=== PATIENT | male | born 1970 | race Hispanic/Latino ===

== ENCOUNTER 2021-07-07 10:10 | Outpatient (CLI) | payer OTHER ==
[2021-07-07 11:11] LABS: #Monocytes 0.2 10x3/uL (0.0-1.1); #Neutrophils 1.8 10x3/uL (1.5-8.4); %Basophils 0.3 % (0.0-2.0); %Eosinophils 0.8 % (0.0-6.0); %Lymphocytes 45.7 % (18.0-47.0); %Monocytes 4.4 % (0.0-10.0); %Neutrophils 47.8 % (40.0-75.0); Hemoglobin 10.4 g/dL (13.5-17.5); Mean Corpuscular HGB CONC 30.2 g/dL (32.0-36.0); Mean Corpuscular Hemoglobin 27.2 pg (27.0-33.0); Mean Corpuscular Volume 90.1 fl (81.2-95.1); Mean Platelet Volume 8.5 fl (7.4-10.4); Platelet Count 131 10x3/uL (150-450); Red Blood Cell (RBC) Count 3.82 10x6/uL (4.32-5.72); White Blood Cell (WBC) Count 3.9 10x3/uL (3.5-10.5)
[2021-07-07 11:38] LABS: Anion Gap 12 mmol/L (10-20); BUN (Urea Nitrogen) 7 mg/dL (8.9-20.6); Calc. Creatinine Clearance 0 mL/min (70-130); Calcium 8.4 mg/dL (7.8-10.44); Carbon Dioxide 27 mmol/L (22-29); Chloride 108 mmol/L (98-107); Glucose 159 mg/dL (70-105); Potassium 3.6 mmol/L (3.5-5.1); Sodium 143 mmol/L (136-145)
[2021-07-07 18:11] LABS: SARS-CoV-2 PCR by NAA Not Detected (NotDetected)
== END 2021-07-07 10:11 | disposition home or self-care (01) ==
LOC: LABBT 10:10
PROVIDERS: ATTEND Specialist
DX: Z01.818 Encounter for other preprocedural examination (principal); K43.2 Incisional hernia without obstruction or gangrene; Z20.822 Contact with and (suspected) exposure to COVID-19
CPT/HCPCS: 80048; 85025; 93005; 93010; U0003; U0005

== ENCOUNTER 2021-07-08 11:10 | Emergency (ER) | payer OTHER ==
[2021-07-08 11:43] LABS: #Lymphocytes 1.5 thou/uL (1.20-3.40); #Monocytes 0.2 thou/uL (0.11-0.59); %Basophils 0.3 % (0.0-1.0); %Eosinophils 1.1 % (0.0-10.0); %Monocytes 5.4 % (0.0-10.0); %Neutrophils 53.3 % (42.0-75.0); Hemoglobin 11.4 g/dL (14.0-18.0); Mean Corpuscular HGB CONC 32.7 g/dL (32.0-36.0); Mean Corpuscular Hemoglobin 28.9 pg (27.0-31.0); Mean Corpuscular Volume 88.2 fL (78.0-98.0); Mean Platelet Volume 7.2 fL (7.4-10.4); Platelet Count 155 thou/uL (130-400); RBC Distribution Width 13.5 % (11.5-14.5); Red Blood Cell (RBC) Count 3.94 mill/uL (4.70-6.10); White Blood Cell (WBC) Count 3.7 thou/uL (4.8-10.8)
[2021-07-08 12:42] LABS: ALT (SGPT) 16 U/L (8-55); AST (SGOT) 20 U/L (5-34); Albumin 3.2 g/dL (3.5-5.0); Alkaline Phosphatase 128 U/L (40-110); Anion Gap 13 mmol/L (10-20); BUN (Urea Nitrogen) 9 mg/dL (8.9-20.6); Bilirubin, Total 0.2 mg/dL (0.2-1.2); Calc. Creatinine Clearance 0 mL/min (70-130); Calcium 8.7 mg/dL (7.8-10.44); Carbon Dioxide 25 mmol/L (22-29); Chloride 111 mmol/L (98-107); Globulin 3.4 g/dL (2.4-3.5); Glucose 106 mg/dL (70-105); Potassium 3.8 mmol/L (3.5-5.1); Protein, Total 6.6 g/dL (6.0-8.3); Sodium 145 mmol/L (136-145)
[2021-07-08 14:11] LABS: Troponin I 0.015 ng/mL (< 0.028)
[2021-07-08] MEDS ORDERED: Morphine 4 MG/ML VIAL ONE (14:49)
== END 2021-07-08 15:07 | disposition home or self-care (01) ==
LOC: ERS 11:10
DX: R07.89 Other chest pain (principal); E11.9 Type 2 diabetes mellitus without complications; J45.909 Unspecified asthma, uncomplicated; Z87.891 Personal history of nicotine dependence; Z79.899 Other long term (current) drug therapy
CPT/HCPCS: 36415; 71045; 80053; 84484; 85025; 93005; 96372; J2270

== ENCOUNTER 2021-07-10 06:16 | Inpatient (IN) | payer OTHER ==
[2021-07-09 12:11] VITALS: BMI 36.5
[2021-07-10] MEDS ORDERED: Acetaminophen 500 MG TAB ONE (06:47)
[2021-07-10] MEDS ORDERED: ceFAZolin 2 GM/DEX 5% 100 ML BAG ONE (06:47)
[2021-07-10] MEDS ORDERED: Gabapentin 300 MG CAP ONE (06:47)
[2021-07-10] MEDS ORDERED: Ketorolac Tromethamine 30 MG/ML VIAL ONE (06:47)
[2021-07-10] MEDS ORDERED: Bupivacaine 0.25% HCL 30 ML VIAL ONE (07:24)
[2021-07-10] MEDS ORDERED: Lidocaine 1% w/Epinephrine 1:100K 20 ML VIAL ONE (07:24)
[2021-07-10] MEDS ORDERED: Fentanyl 250 MCG/5 ML VIAL ONE (07:45)
[2021-07-10] MEDS ORDERED: Midazolam HCl 2 mg/2 ml Vial ONE (07:45)
[2021-07-10] MEDS ORDERED: Rocuronium Bromide 10 MG/ML (10ML VIAL) ONE (08:03)
[2021-07-10] MEDS ORDERED: Lidocaine 1% PF 5 ML VIAL ONE (08:03)
[2021-07-10] MEDS ORDERED: Glycopyrrolate 0.2 MG/ML 5 ML SYRINGE ONE (08:03)
[2021-07-10] MEDS ORDERED: PROPOFOL 200 MG/20 ML VIAL ONE (08:03)
[2021-07-10] MEDS ORDERED: Ondansetron PF 4 MG/2 ML Vial ONE ×2 (08:03)
[2021-07-10] MEDS ORDERED: Dexamethasone 20 MG/5 ML VIAL ONE (08:03)
[2021-07-10] MEDS ORDERED: Hydrocortisone 1% Cream 30 GM TUBE ONE (08:24)
[2021-07-10] MEDS ORDERED: Hydrocortisone Sod Succ/PF 100 mg/2 ml Vial ONE (08:25)
[2021-07-10] MEDS ORDERED: HYDROmorphone 2 MG/ML VIAL ONE (10:35)
[2021-07-10] MEDS ORDERED: Promethazine HCl 25 MG/ML VIAL IM PRN (11:46)
[2021-07-10] MEDS ORDERED: Meperidine HCl/PF 25 MG/ML VIAL SLOW IVP PRN (11:46)
[2021-07-10] MEDS ORDERED: Promethazine HCl 25 MG/ML VIAL IVPB PRN (11:46)
[2021-07-10] MEDS ORDERED: Ondansetron HCl/PF 4 MG/2 ML Vial IVP PRN (11:46)
[2021-07-10] MEDS ORDERED: Fentanyl 100 MCG/2 ML VIAL ONE ×2 (12:10→12:36)
[2021-07-10] MEDS ORDERED: Dextrose 50% Abboject 50 ML SYRINGE SLOW IVP PRN (12:21)
[2021-07-10] MEDS ORDERED: hydrALAZINE 20 MG/ML VIAL SLOW IVP PRN (12:21)
[2021-07-10] MEDS ORDERED: Ondansetron ODT 4 MG TAB PO PRN (12:21)
[2021-07-10] MEDS ORDERED: Morphine 4 MG/ML VIAL SLOW IVP PRN ×2 (12:21→12:40)
[2021-07-10] MEDS ORDERED: Ondansetron PF 4 MG/2 ML Vial IVP PRN (12:21)
[2021-07-10] MEDS ORDERED: Dextrose 5% in Water 1,000 ML IV PRN (12:21)
[2021-07-10] MEDS ORDERED: traMADol HCl 50 MG TAB PO PRN (12:26)
[2021-07-10] MEDS ORDERED: Ketorolac Tromethamine 30 MG/ML VIAL IVP PRN (12:26)
[2021-07-10] MEDS ORDERED: Acetaminophen 500 MG TAB PO PRN (12:26)
[2021-07-10] MEDS ORDERED: Ketorolac Tromethamine 30 MG/ML VIAL IVP SCH (12:30)
[2021-07-10] MEDS ORDERED: Piperacillin/Tazobactam 3.375 GM in Sodium Chloride 0.9% 100 ML IVPB SCH ×2 (12:30→13:00)
[2021-07-10] MEDS ORDERED: Acetaminophen 500 MG TAB PO SCH (12:30)
[2021-07-10] MEDS ORDERED: Piperacillin/Tazobactam 3.375 GM VIAL ONE (12:42)
[2021-07-10] MEDS ORDERED: Sodium Chloride 0.9% 100 ML ONE (12:42)
[2021-07-10] MEDS: Sodium Chloride 0.45% 1,000 ML IV SCH ×2 (14:59→23:08)
[2021-07-10] MEDS: Piperacillin/Tazobactam 3.375 GM in Sodium Chloride 0.9% 100 ML IVPB SCH (17:55)
[2021-07-10] MEDS: HumaLOG 300 UNITS/3 ML VIAL SC PRN ×2 (17:56→20:25)
[2021-07-10] MEDS ORDERED: Nystatin Powder 15 GM BOT TOP PRN (18:04)
[2021-07-10] MEDS: Enoxaparin Sodium 40 MG/0.4 ML SYRINGE SC SCH (20:25)
[2021-07-10] MEDS: Famotidine 20 MG TAB PO SCH (20:25)
[2021-07-11] MEDS: Piperacillin/Tazobactam 3.375 GM in Sodium Chloride 0.9% 100 ML IVPB SCH ×3 (02:07→17:54)
[2021-07-11] MEDS: Sodium Chloride 0.45% 1,000 ML IV SCH (04:48)
[2021-07-11 04:56] LABS: #Lymphocytes 1.1 thou/uL (1.20-3.40); #Monocytes 0.2 thou/uL (0.11-0.59); #Neutrophils 3.3 thou/uL (1.40-6.50); %Eosinophils 0.3 % (0.0-10.0); %Lymphocytes 23.2 % (21.0-51.0); %Monocytes 3.8 % (0.0-10.0); %Neutrophils 72.7 % (42.0-75.0); Hemoglobin 9.2 g/dL (14.0-18.0); Mean Corpuscular HGB CONC 32.1 g/dL (32.0-36.0); Mean Corpuscular Hemoglobin 28.5 pg (27.0-31.0); Mean Corpuscular Volume 88.8 fL (78.0-98.0); Mean Platelet Volume 6.9 fL (7.4-10.4); Platelet Count 127 thou/uL (130-400); RBC Distribution Width 13.1 % (11.5-14.5); Red Blood Cell (RBC) Count 3.22 mill/uL (4.70-6.10); White Blood Cell (WBC) Count 4.5 thou/uL (4.8-10.8)
[2021-07-11 05:24] LABS: ALT (SGPT) 13 U/L (8-55); AST (SGOT) 14 U/L (5-34); Albumin 2.8 g/dL (3.5-5.0); Alkaline Phosphatase 106 U/L (40-110); Anion Gap 11 mmol/L (10-20); BUN (Urea Nitrogen) 16 mg/dL (8.9-20.6); Bilirubin, Total 0.2 mg/dL (0.2-1.2); Calc. Creatinine Clearance 130 mL/min (70-130); Calcium 8.2 mg/dL (7.8-10.44); Carbon Dioxide 24 mmol/L (22-29); Chloride 106 mmol/L (98-107); Globulin 3.5 g/dL (2.4-3.5); Glucose 227 mg/dL (70-105); Magnesium 1.6 mg/dL (1.6-2.6); Potassium 4.3 mmol/L (3.5-5.1); Protein, Total 6.3 g/dL (6.0-8.3); Sodium 137 mmol/L (136-145)
[2021-07-11] MEDS: HumaLOG 300 UNITS/3 ML VIAL SC PRN ×3 (07:00→20:48)
[2021-07-11] MEDS: Lantus 1000 UNITS/10 ML VIAL SC SCH (08:41)
[2021-07-11] MEDS: Famotidine 20 MG TAB PO SCH ×2 (08:42→20:52)
[2021-07-11] MEDS: Folic Acid 1 MG TAB PO SCH (08:43)
[2021-07-11] MEDS: Pioglitazone HCl 45 MG TAB PO SCH (08:43)
[2021-07-11] MEDS: predniSONE 5 MG TAB PO SCH (08:43)
[2021-07-11] MEDS: HYDROcodone/Acetaminophen 5/325 mg Tablet PO PRN (08:47)
[2021-07-11] MEDS ORDERED: glyBURIDE 5 MG TAB PO SCH (09:00)
[2021-07-11] MEDS ORDERED: FLU VACC QS2021-22(6MOS UP)/PF 60 MCG/0.5 ML SYRINGE IM ONE (09:00)
[2021-07-11] MEDS: glyBURIDE 5 MG TAB PO SCH (10:04)
[2021-07-11] MEDS: Enoxaparin Sodium 40 MG/0.4 ML SYRINGE SC SCH (20:52)
[2021-07-12] MEDS: Piperacillin/Tazobactam 3.375 GM in Sodium Chloride 0.9% 100 ML IVPB SCH ×3 (02:58→17:52)
[2021-07-12] MEDS: Famotidine 20 MG TAB PO SCH ×2 (09:03→21:06)
[2021-07-12] MEDS: Folic Acid 1 MG TAB PO SCH (09:04)
[2021-07-12] MEDS: predniSONE 5 MG TAB PO SCH (09:04)
[2021-07-12] MEDS: HYDROcodone/Acetaminophen 5/325 mg Tablet PO PRN ×2 (09:08→13:29)
[2021-07-12] MEDS: glyBURIDE 5 MG TAB PO SCH (09:15)
[2021-07-12] MEDS: Pioglitazone HCl 45 MG TAB PO SCH (09:16)
[2021-07-12] MEDS: Lantus 1000 UNITS/10 ML VIAL SC SCH (11:07)
[2021-07-12] MEDS: HumaLOG 300 UNITS/3 ML VIAL SC PRN (16:49)
[2021-07-12] MEDS: Enoxaparin Sodium 40 MG/0.4 ML SYRINGE SC SCH (21:06)
[2021-07-13] MEDS: Piperacillin/Tazobactam 3.375 GM in Sodium Chloride 0.9% 100 ML IVPB SCH ×3 (02:41→18:13)
[2021-07-13] MEDS: Lantus 1000 UNITS/10 ML VIAL SC SCH (09:11)
[2021-07-13] MEDS: glyBURIDE 5 MG TAB PO SCH (09:13)
[2021-07-13] MEDS: predniSONE 5 MG TAB PO SCH (09:14)
[2021-07-13] MEDS: Famotidine 20 MG TAB PO SCH ×2 (09:14→20:17)
[2021-07-13] MEDS: Folic Acid 1 MG TAB PO SCH (09:14)
[2021-07-13] MEDS: Pioglitazone HCl 45 MG TAB PO SCH (09:15)
[2021-07-13] MEDS ORDERED: Piperacillin/Tazobactam 3.375 GM VIAL ONE (18:05)
[2021-07-13 19:20] LABS: SARS-CoV-2 NAA Rapid Test Not Detected (NotDetected)
[2021-07-13] MEDS: Enoxaparin Sodium 40 MG/0.4 ML SYRINGE SC SCH (20:17)
[2021-07-14] MEDS: Piperacillin/Tazobactam 3.375 GM in Sodium Chloride 0.9% 100 ML IVPB SCH ×3 (02:10→16:58)
[2021-07-14 06:17] LABS: #Eosinphils 0.1 thou/uL (0.0-0.7); #Lymphocytes 2.3 thou/uL (1.20-3.40); #Monocytes 0.4 thou/uL (0.11-0.59); #Neutrophils 2.5 thou/uL (1.40-6.50); %Eosinophils 2.2 % (0.0-10.0); %Lymphocytes 43.7 % (21.0-51.0); %Monocytes 7.3 % (0.0-10.0); %Neutrophils 46.9 % (42.0-75.0); Hemoglobin 10.4 g/dL (14.0-18.0); Mean Corpuscular HGB CONC 31.2 g/dL (32.0-36.0); Mean Corpuscular Hemoglobin 28.2 pg (27.0-31.0); Mean Corpuscular Volume 90.4 fL (78.0-98.0); Mean Platelet Volume 6.4 fL (7.4-10.4); Platelet Count 170 thou/uL (130-400); RBC Distribution Width 13.7 % (11.5-14.5); Red Blood Cell (RBC) Count 3.68 mill/uL (4.70-6.10); White Blood Cell (WBC) Count 5.2 thou/uL (4.8-10.8)
[2021-07-14 06:36] LABS: ALT (SGPT) 16 U/L (8-55); AST (SGOT) 17 U/L (5-34); Albumin 3.2 g/dL (3.5-5.0); Alkaline Phosphatase 133 U/L (40-110); Anion Gap 11 mmol/L (10-20); BUN (Urea Nitrogen) 16 mg/dL (8.9-20.6); Bilirubin, Total 0.3 mg/dL (0.2-1.2); Calc. Creatinine Clearance 130 mL/min (70-130); Carbon Dioxide 31 mmol/L (22-29); Chloride 114 mmol/L (98-107); Globulin 3.8 g/dL (2.4-3.5); Glucose 76 mg/dL (70-105); Potassium 3.5 mmol/L (3.5-5.1); Sodium 152 mmol/L (136-145)
[2021-07-14] MEDS ORDERED: Lactated Ringer's 1,000 ML IV SCH (08:00)
[2021-07-14] MEDS: Cholecalciferol (Vitamin D3) 400 UNITS TAB PO SCH (08:44)
[2021-07-14] MEDS: Famotidine 20 MG TAB PO SCH ×2 (08:44→20:43)
[2021-07-14] MEDS: Folic Acid 1 MG TAB PO SCH (08:44)
[2021-07-14] MEDS: Lantus 1000 UNITS/10 ML VIAL SC SCH (08:45)
[2021-07-14] MEDS: predniSONE 5 MG TAB PO SCH (08:45)
[2021-07-14] MEDS: Pioglitazone HCl 45 MG TAB PO SCH (08:45)
[2021-07-14] MEDS: ERGOCALCIFEROL 50 MCG PO SCH ×2 (09:13→09:14)
[2021-07-14] MEDS: Enoxaparin Sodium 40 MG/0.4 ML SYRINGE SC SCH (20:38)
[2021-07-14] MEDS: HumaLOG 300 UNITS/3 ML VIAL SC PRN (20:48)
[2021-07-15] MEDS: Piperacillin/Tazobactam 3.375 GM in Sodium Chloride 0.9% 100 ML IVPB SCH ×2 (02:11→15:40)
[2021-07-15] MEDS ORDERED: Sodium Chloride 0.45% 1,000 ML IV SCH (08:00)
[2021-07-15] MEDS ORDERED: Lidocaine 1% w/Epinephrine 1:100K 20 ML VIAL ONE (08:25)
[2021-07-15] MEDS ORDERED: Bupivacaine 0.25% HCL 30 ML VIAL ONE (08:25)
[2021-07-15] MEDS ORDERED: Fentanyl 250 MCG/5 ML VIAL ONE (08:58)
[2021-07-15] MEDS ORDERED: Fentanyl 100 MCG/2 ML VIAL ONE (11:28)
[2021-07-15] MEDS: Cholecalciferol (Vitamin D3) 400 UNITS TAB PO SCH (14:01)
[2021-07-15] MEDS: predniSONE 5 MG TAB PO SCH (14:02)
[2021-07-15] MEDS: Pioglitazone HCl 45 MG TAB PO SCH (14:02)
[2021-07-15] MEDS: Famotidine 20 MG TAB PO SCH (14:02)
[2021-07-15] MEDS: Folic Acid 1 MG TAB PO SCH (14:02)
[2021-07-15] MEDS: Lantus 1000 UNITS/10 ML VIAL SC SCH (14:20)
[2021-07-15 15:58] VITALS: BP 102/66; TEMP 98
== END 2021-07-15 16:16 | disposition home or self-care (01) | DRG 330 ==
LOC: SDC 06:16 → SURG A 12:31
PROVIDERS: ADMIT Specialist; ATTEND Specialist
PROC: 0DQE4ZZ Repair Large Intestine, Percutaneous Endoscopic Approach (ICD-10-PCS; principal; 2021-07-10)
PROC: 0DNW4ZZ Release Peritoneum, Percutaneous Endoscopic Approach (ICD-10-PCS; 2021-07-10)
PROC: 0WQF4ZZ Repair Abdominal Wall, Percutaneous Endoscopic Approach (ICD-10-PCS; 2021-07-10)
PROC: 8E0W4CZ Robotic Assisted Procedure of Trunk Region, Percutaneous Endoscopic Approach (ICD-10-PCS; 2021-07-10)
PROC: 0WUF4JZ Supplement Abdominal Wall with Synthetic Substitute, Percutaneous Endoscopic Approach (ICD-10-PCS; 2021-07-15)
PROC: 8E0W4CZ Robotic Assisted Procedure of Trunk Region, Percutaneous Endoscopic Approach (ICD-10-PCS; 2021-07-15)
DX: K43.2 Incisional hernia without obstruction or gangrene (principal); C96.6 Unifocal Langerhans-cell histiocytosis; Z20.822 Contact with and (suspected) exposure to COVID-19; E11.9 Type 2 diabetes mellitus without complications; E66.9 Obesity, unspecified; Z79.52 Long term (current) use of systemic steroids; Z93.3 Colostomy status; Z68.36 Body mass index [BMI] 36.0-36.9, adult; Z79.4 Long term (current) use of insulin; Z79.899 Other long term (current) drug therapy
CPT/HCPCS: 36415; 36416; 80053; 83735; 85025; 86850; 86900; 86901; C1713; J1100; J1170; J1650; J1720; J1815; J1885; J2250; J2405; J2543; J2704; J3010; J3490; J7120; J7512; S0020; U0002

== ENCOUNTER 2023-10-16 23:22 | Inpatient (IN) | payer OTHER ==
[2023-10-17 00:06] LABS: #Eosinphils 0.2 thou/uL (0.0-0.7); #Monocytes 1.1 thou/uL (0.11-0.59); #Neutrophils 8.2 thou/uL (1.40-6.50); %Basophils 0.1 % (0.0-1.0); %Eosinophils 1.2 % (0.0-10.0); %Lymphocytes 24.6 % (21.0-51.0); %Monocytes 8.9 % (0.0-10.0); %Neutrophils 64.6 % (42.0-75.0); Hematocrit 29.9 % (42.0-52.0); Hemoglobin 8.7 g/dL (14.0-18.0); Mean Corpuscular HGB CONC 29.1 g/dL (32.0-36.0); Mean Corpuscular Hemoglobin 28.1 pg (27.0-31.0); Mean Corpuscular Volume 96.5 fl (78.0-98.0); Mean Platelet Volume 8.9 fL (7.4-10.4); Platelet Count 155 10x3/uL (130-400); RBC Distribution Width 18.6 % (11.5-14.5); White Blood Cell (WBC) Count 12.7 10x3/uL (4.8-10.8)
[2023-10-17] MEDS ORDERED: Ipratropium/Albuterol 3 ML NEB ONE (00:10)
[2023-10-17 00:37] LABS: Troponin I 0.023 ng/mL (< 0.028)
[2023-10-17] MEDS ORDERED: methylPREDNISolone Sod Succ/PF 125 MG/2 ML VIAL ONE ×2 (00:45→00:51)
[2023-10-17] MEDS ORDERED: Sodium Chloride 0.9% 100 ML ONE (00:45)
[2023-10-17] MEDS ORDERED: Cefepime 1 GM VIAL ONE (00:45)
[2023-10-17 00:46] LABS: Albumin 2.5 g/dL (3.5-5.0)
[2023-10-17 00:47] LABS: Chloride 89 mmol/L (98-107); Potassium 4.2 mmol/L (3.5-5.1); Sodium 130 mmol/L (136-145)
[2023-10-17 00:48] LABS: Calcium 7.7 mg/dL (7.8-10.44)
[2023-10-17 00:49] LABS: Globulin 3.4 g/dL (2.4-3.5); Glucose 130 mg/dL (70-105); Protein, Total 5.9 g/dL (6.0-8.3)
[2023-10-17 00:50] LABS: Anion Gap 16 mmol/L (10-20); Bilirubin, Total 0.4 mg/dL (0.2-1.2); Carbon Dioxide 29 mmol/L (22-29)
[2023-10-17 00:51] LABS: Alkaline Phosphatase 237 U/L (40-110)
[2023-10-17 00:52] LABS: Calc. Creatinine Clearance 0 mL/min (70-130); Estimated GFR 107
[2023-10-17 00:53] LABS: BUN (Urea Nitrogen) 21 mg/dL (8.4-25.7)
[2023-10-17 00:54] LABS: ALT (SGPT) 23 U/L (8-55); AST (SGOT) 27 U/L (5-34)
[2023-10-17] MEDS ORDERED: Vancomycin 1 GM/200 ML (FROZEN) BAG ONE (02:30)
[2023-10-17 02:50] LABS: Actual Bicarbonate (HCO3a) 31.1 mEq/L (22-28); Analyzer IN Cardio ER; Base Excess (BEa) 3.8 mEq/L (-2.0 to +3.0); Calcium, Ionized (arterial) 1.08 mmol/L (1.12-1.30); Carboxyhemoglobin (COHb) 1.2 gm% (0.0-3.0); Hematocrit-ABG 29 % (42.0-52.0); Hemoglobin (Hb) 9.8 g/dL (14.0-18.0); Potassium - ABG Lab 3.53 mmol/L (3.70-5.30); pH, Arterial 7.313 (7.35-7.45)
[2023-10-17 02:54] LABS: CO2 Tension 62.7 mmHg (35.0-45.0)
[2023-10-17 02:55] LABS: ALV-art Gradient 221.125 mmHg (0-20); Puncture Site LRA
[2023-10-17] MEDS ORDERED: Ondansetron ODT 4 MG TAB PO PRN (03:28)
[2023-10-17] MEDS ORDERED: Acetaminophen 650 MG Suppository PR PRN (03:28)
[2023-10-17] MEDS ORDERED: Acetaminophen 325 MG TAB PO PRN (03:28)
[2023-10-17] MEDS ORDERED: Ipratropium/Albuterol 3 ML NEB NEB PRN (03:38)
[2023-10-17] MEDS ORDERED: Albuterol 2.5 MG (3 mL) NEB NEB PRN (04:04)
[2023-10-17 04:49] LABS: #Monocytes 0.3 thou/uL (0.11-0.59); #Neutrophils 5.3 thou/uL (1.40-6.50); %Eosinophils 0.2 % (0.0-10.0); %Lymphocytes 5.8 % (21.0-51.0); %Monocytes 5.6 % (0.0-10.0); %Neutrophils 88.1 % (42.0-75.0); Hematocrit 29.3 % (42.0-52.0); Hemoglobin 8.8 g/dL (14.0-18.0); Mean Corpuscular Hemoglobin 28.4 pg (27.0-31.0); Mean Corpuscular Volume 94.5 fl (78.0-98.0); Mean Platelet Volume 9.5 fL (7.4-10.4); Platelet Count 142 10x3/uL (130-400); RBC Distribution Width 18.5 % (11.5-14.5)
[2023-10-17 05:04] LABS: Lactic Acid 1.3 mmol/L (0.5-2.2)
[2023-10-17 05:27] LABS: Anion Gap 14 mmol/L (10-20); BUN (Urea Nitrogen) 17 mg/dL (8.4-25.7); Calc. Creatinine Clearance 137 mL/min (70-130); Calcium 8.1 mg/dL (7.8-10.44); Carbon Dioxide 28 mmol/L (22-29); Chloride 98 mmol/L (98-107); Estimated GFR 113; Glucose 83 mg/dL (70-105); Potassium 4.2 mmol/L (3.5-5.1); Sodium 136 mmol/L (136-145)
[2023-10-17] MEDS: Ipratropium/Albuterol 3 ML NEB NEB SCH (08:18)
[2023-10-17] MEDS: Enoxaparin 40 MG (0.4 mL) SYRINGE SC SCH (08:26)
[2023-10-17] MEDS: Cefepime 2 GM in Sodium Chloride 0.9% 100 ML IVPB SCH ×2 (08:26→17:42)
[2023-10-17] MEDS: Pantoprazole 40 MG VIAL IVP SCH (08:27)
[2023-10-17] MEDS: methylPREDNISolone Sod Succ 40 MG VIAL IVP SCH (08:27)
[2023-10-17] MEDS: FLU VACC QS2023-24(6MOS UP)/PF 60 MCG/0.5 ML SYRINGE IM ONE (08:27)
[2023-10-17 08:45] LABS: Actual Bicarbonate (HCO3a) 30.1 mEq/L (22-28); Base Excess (BEa) 4.8 mEq/L (-2.0 to +3.0); CO2 Tension 49.2 mmHg (35.0-45.0); Calcium, Ionized (arterial) 1.07 mmol/L (1.12-1.30); Carboxyhemoglobin (COHb) 1.8 gm% (0.0-3.0); Hematocrit-ABG 25 % (42.0-52.0); Hemoglobin (Hb) 8.5 g/dL (14.0-18.0); O2 Tension (PaO2), arterial 114.9 mmHg (80.0-100.0); Potassium - ABG Lab 4.53 mmol/L (3.70-5.30); pH, Arterial 7.405 (7.35-7.45)
[2023-10-17] MEDS: NOREPINEPHRINE 8 MG/250 ML-D5W 250 ML IVPB SCH (08:45)
[2023-10-17 08:47] LABS: Puncture Site RRA
[2023-10-17] MEDS: NOREPINEPHRINE 8 MG/250 ML-D5W 250 ML ONE (09:05)
[2023-10-17] MEDS: Sodium Chloride 0.9% 1,000 ML IV SCH ×2 (09:06→16:01)
[2023-10-18 04:52] LABS: #Monocytes 0.5 thou/uL (0.11-0.59); #Neutrophils 5.8 thou/uL (1.40-6.50); %Monocytes 6.9 % (0.0-10.0); %Neutrophils 82.1 % (42.0-75.0); Hematocrit 21.7 % (42.0-52.0); Hemoglobin 6.4 g/dL (14.0-18.0); Mean Corpuscular HGB CONC 29.5 g/dL (32.0-36.0); Mean Corpuscular Hemoglobin 27.9 pg (27.0-31.0); Mean Corpuscular Volume 94.8 fl (78.0-98.0); Mean Platelet Volume 8.7 fL (7.4-10.4); Platelet Count 125 10x3/uL (130-400); RBC Distribution Width 18.8 % (11.5-14.5); Red Blood Cell (RBC) Count 2.29 mill/uL (4.70-6.10); White Blood Cell (WBC) Count 7.1 10x3/uL (4.8-10.8)
[2023-10-18 05:19] LABS: ALT (SGPT) 16 U/L (8-55); AST (SGOT) 18 U/L (5-34); Albumin 2.1 g/dL (3.5-5.0); Alkaline Phosphatase 149 U/L (40-110); Anion Gap 15 mmol/L (10-20); BUN (Urea Nitrogen) 18 mg/dL (8.4-25.7); Bilirubin, Total Less than 0.2 mg/dL (0.2-1.2); Calc. Creatinine Clearance 141 mL/min (70-130); Calcium 7.1 mg/dL (7.8-10.44); Carbon Dioxide 23 mmol/L (22-29); Chloride 109 mmol/L (98-107); Estimated GFR 113; Globulin 3.4 g/dL (2.4-3.5); Glucose 152 mg/dL (70-105); Potassium 3.7 mmol/L (3.5-5.1); Protein, Total 5.5 g/dL (6.0-8.3); Sodium 143 mmol/L (136-145)
[2023-10-18 06:53] LABS: Hematocrit 23.4 % (42.0-52.0); Hemoglobin 6.8 g/dL (14.0-18.0); Mean Corpuscular HGB CONC 29.1 g/dL (32.0-36.0); Mean Corpuscular Hemoglobin 27.9 pg (27.0-31.0); Mean Corpuscular Volume 95.9 fl (78.0-98.0); Mean Platelet Volume 9.7 fL (7.4-10.4); Platelet Count 119 10x3/uL (130-400); RBC Distribution Width 19.4 % (11.5-14.5); Red Blood Cell (RBC) Count 2.44 mill/uL (4.70-6.10); White Blood Cell (WBC) Count 8.1 10x3/uL (4.8-10.8)
[2023-10-18 15:40] LABS: Hematocrit 23.2 % (42.0-52.0); Hemoglobin 6.7 g/dL (14.0-18.0)
[2023-10-18 16:45] LABS: Iron 48 ug/dL (65-175); Iron Binding Capacity, Total 241 mcg/dL (261-462)
[2023-10-18 20:21] LABS: Hemoglobin 8.8 g/dL (14.0-18.0)
[2023-10-19 04:57] LABS: #Monocytes 0.6 thou/uL (0.11-0.59); #Neutrophils 7.2 thou/uL (1.40-6.50); %Lymphocytes 8.3 % (21.0-51.0); %Monocytes 6.5 % (0.0-10.0); %Neutrophils 84.3 % (42.0-75.0); Hematocrit 30.1 % (42.0-52.0); Hemoglobin 8.8 g/dL (14.0-18.0); Mean Corpuscular HGB CONC 29.2 g/dL (32.0-36.0); Mean Corpuscular Hemoglobin 27.7 pg (27.0-31.0); Mean Corpuscular Volume 94.7 fl (78.0-98.0); Mean Platelet Volume 9.8 fL (7.4-10.4); Platelet Count 134 10x3/uL (130-400); RBC Distribution Width 19.1 % (11.5-14.5); Red Blood Cell (RBC) Count 3.18 mill/uL (4.70-6.10); White Blood Cell (WBC) Count 8.5 10x3/uL (4.8-10.8)
[2023-10-19 05:26] LABS: ALT (SGPT) 16 U/L (8-55); AST (SGOT) 20 U/L (5-34); Albumin 2.6 g/dL (3.5-5.0); Alkaline Phosphatase 176 U/L (40-110); Anion Gap 12 mmol/L (10-20); BUN (Urea Nitrogen) 23 mg/dL (8.4-25.7); Bilirubin, Total 0.2 mg/dL (0.2-1.2); Calc. Creatinine Clearance 135 mL/min (70-130); Carbon Dioxide 27 mmol/L (22-29); Chloride 107 mmol/L (98-107); Estimated GFR 111; Glucose 169 mg/dL (70-105); Potassium 3.6 mmol/L (3.5-5.1); Protein, Total 6.6 g/dL (6.0-8.3); Sodium 142 mmol/L (136-145)
[2023-10-19] MEDS ORDERED: Dextrose 5% in Water 1,000 ML IV PRN (15:25)
[2023-10-19] MEDS: glyBURIDE 5 MG TAB PO SCH (17:14)
[2023-10-19] MEDS: Insulin Glargine 30 UNITS/0.3 ML VIAL SC SCH (20:09)
[2023-10-19] MEDS: HYDROcodone/Acetaminophen 5/325 mg Tablet PO PRN (20:21)
[2023-10-19] MEDS: Lidocaine 1% (PF) 30 ML VIAL ONE (22:20)
[2023-10-19] MEDS: Lorazepam 2 MG/ML VIAL SLOW IVP SCH (22:20)
[2023-10-20 06:14] LABS: #Eosinphils 0.1 thou/uL (0.0-0.7); #Monocytes 0.7 thou/uL (0.11-0.59); #Neutrophils 4.4 thou/uL (1.40-6.50); %Basophils 0.1 % (0.0-1.0); %Eosinophils 0.9 % (0.0-10.0); %Lymphocytes 28.5 % (21.0-51.0); %Monocytes 9.6 % (0.0-10.0); %Neutrophils 58.8 % (42.0-75.0); Hematocrit 35.8 % (42.0-52.0); Hemoglobin 10.3 g/dL (14.0-18.0); Mean Corpuscular HGB CONC 28.8 g/dL (32.0-36.0); Mean Corpuscular Hemoglobin 28.5 pg (27.0-31.0); Mean Corpuscular Volume 99.2 fl (78.0-98.0); Mean Platelet Volume 9.2 fL (7.4-10.4); Platelet Count 135 10x3/uL (130-400); RBC Distribution Width 19.9 % (11.5-14.5); Red Blood Cell (RBC) Count 3.61 mill/uL (4.70-6.10); White Blood Cell (WBC) Count 7.6 10x3/uL (4.8-10.8)
[2023-10-20 06:31] LABS: ALT (SGPT) 18 U/L (8-55); AST (SGOT) 20 U/L (5-34); Albumin 2.7 g/dL (3.5-5.0); Alkaline Phosphatase 185 U/L (40-110); Anion Gap 12 mmol/L (10-20); BUN (Urea Nitrogen) 20 mg/dL (8.4-25.7); Bilirubin, Total 0.2 mg/dL (0.2-1.2); Calc. Creatinine Clearance 115 mL/min (70-130); Calcium 8.6 mg/dL (7.8-10.44); Carbon Dioxide 29 mmol/L (22-29); Chloride 111 mmol/L (98-107); Estimated GFR 106; Globulin 4.2 g/dL (2.4-3.5); Glucose 148 mg/dL (70-105); Potassium 3.1 mmol/L (3.5-5.1); Protein, Total 6.9 g/dL (6.0-8.3); Sodium 149 mmol/L (136-145)
[2023-10-20 06:55] LABS: Anisocytosis SLIGHT = 6-15 cells HPF (0-5); CellaVision Operator ID lab.abc; Macrocytosis SLIGHT = 6-15 cells HPF (0-5); Platelet Adequacy Comment Platelets Normal; Polychromasia SLIGHT = 2-3 cells HPF (0-2); Smudge Cells 33.7 %
[2023-10-20] MEDS: predniSONE 5 MG TAB PO SCH (09:14)
[2023-10-20] MEDS: Folic Acid 1 MG TAB PO SCH (09:15)
[2023-10-20] MEDS: Furosemide 40 MG (4 mL) VIAL SLOW IVP SCH (14:04)
[2023-10-20] MEDS: HumaLOG 300 UNITS/3 ML VIAL SC PRN (17:00)
[2023-10-20] MEDS: Lorazepam 2 MG/ML VIAL SLOW IVP PRN (17:01)
[2023-10-21 07:59] LABS: #Eosinphils 0.1 thou/uL (0.0-0.7); #Monocytes 0.5 thou/uL (0.11-0.59); #Neutrophils 3.4 thou/uL (1.40-6.50); %Basophils 0.2 % (0.0-1.0); %Eosinophils 1.3 % (0.0-10.0); %Monocytes 9.7 % (0.0-10.0); %Neutrophils 63.8 % (42.0-75.0); Hematocrit 36.9 % (42.0-52.0); Hemoglobin 10.5 g/dL (14.0-18.0); Mean Corpuscular HGB CONC 28.5 g/dL (32.0-36.0); Mean Corpuscular Hemoglobin 28.5 pg (27.0-31.0); Mean Platelet Volume 8.5 fL (7.4-10.4); Platelet Count 112 10x3/uL (130-400); RBC Distribution Width 19.9 % (11.5-14.5); Red Blood Cell (RBC) Count 3.69 mill/uL (4.70-6.10); White Blood Cell (WBC) Count 5.4 10x3/uL (4.8-10.8)
[2023-10-21 08:32] LABS: Anisocytosis SLIGHT = 6-15 cells HPF (0-5); CellaVision Operator ID LAB.KW3; Platelet Adequacy Comment Platelets Decreased; Polychromasia MODERATE = 3-4 cells HPF (0-2)
[2023-10-21 08:40] LABS: BUN (Urea Nitrogen) 24 mg/dL (8.4-25.7); Calc. Creatinine Clearance 121 mL/min (70-130); Calcium 8.8 mg/dL (7.8-10.44); Estimated GFR 108; Glucose 91 mg/dL (70-105); Magnesium 2.4 mg/dL (1.6-2.6)
[2023-10-21 08:51] LABS: Anion Gap 12 mmol/L (10-20); Carbon Dioxide 36 mmol/L (22-29); Chloride 112 mmol/L (98-107); Potassium 3.3 mmol/L (3.5-5.1)
[2023-10-21 08:58] LABS: Critical Call Chemistry NUR.MV AT 0850; Sodium 157 mmol/L (136-145)
[2023-10-21] MEDS: Ipratropium/Albuterol 3 ML NEB NEB SCH (13:15)
[2023-10-21] MEDS: Haloperidol Lactate 5 MG/ML VIAL IM SCH (13:36)
[2023-10-21] MEDS ORDERED: Dexmedetomidine In 0.9 % NaCl 100 ML IVPB SCH (13:45)
[2023-10-21 14:04] LABS: Actual Bicarbonate (HCO3a) 35.4 mEq/L (22-28); Base Excess (BEa) 8.3 mEq/L (-2.0 to +3.0); Calcium, Ionized (arterial) 1.16 mmol/L (1.12-1.30); Carboxyhemoglobin (COHb) 0.9 gm% (0.0-3.0); Hematocrit-ABG 34 % (42.0-52.0); Hemoglobin (Hb) 11.7 g/dL (14.0-18.0); Potassium - ABG Lab 3.42 mmol/L (3.70-5.30); pH, Arterial 7.374 (7.35-7.45)
[2023-10-21 14:17] LABS: O2 Tension (PaO2), arterial 39.3 mmHg (80.0-100.0)
[2023-10-21 14:18] LABS: Puncture Site LBA
[2023-10-21 14:40] VITALS: BMI 32.8
[2023-10-21] MEDS: Haloperidol Lactate 5 MG/ML VIAL ONE (14:55)
[2023-10-21] MEDS: Dextrose 5% in Water 500 ML IV SCH (15:13)
[2023-10-21 15:22] LABS: Sodium 158 mmol/L (136-145)
[2023-10-21] MEDS: Enoxaparin 40 MG (0.4 mL) SYRINGE SC SCH (21:27)
[2023-10-21] MEDS: Dextrose 50% Abboject 50 ML SYRINGE SLOW IVP PRN (23:03)
[2023-10-22 03:57] LABS: #Monocytes 0.3 thou/uL (0.11-0.59); #Neutrophils 2.9 thou/uL (1.40-6.50); %Basophils 0.2 % (0.0-1.0); %Eosinophils 0.5 % (0.0-10.0); %Monocytes 6.9 % (0.0-10.0); %Neutrophils 69.5 % (42.0-75.0); Hematocrit 32.5 % (42.0-52.0); Hemoglobin 9.2 g/dL (14.0-18.0); Mean Corpuscular HGB CONC 28.3 g/dL (32.0-36.0); Mean Corpuscular Hemoglobin 28.1 pg (27.0-31.0); Mean Corpuscular Volume 99.4 fl (78.0-98.0); Mean Platelet Volume 8.8 fL (7.4-10.4); RBC Distribution Width 19.5 % (11.5-14.5); Red Blood Cell (RBC) Count 3.27 mill/uL (4.70-6.10); White Blood Cell (WBC) Count 4.2 10x3/uL (4.8-10.8)
[2023-10-22 03:58] LABS: Platelet Count 79 10x3/uL (130-400)
[2023-10-22 04:23] LABS: BUN (Urea Nitrogen) 34 mg/dL (8.4-25.7); Calc. Creatinine Clearance 129 mL/min (70-130); Calcium 8.5 mg/dL (7.8-10.44); Estimated GFR 110; Glucose 58 mg/dL (70-105); Magnesium 2.2 mg/dL (1.6-2.6)
[2023-10-22 04:32] LABS: Anion Gap 14 mmol/L (10-20); Carbon Dioxide 34 mmol/L (22-29); Chloride 110 mmol/L (98-107); Potassium 3.6 mmol/L (3.5-5.1)
[2023-10-22 04:34] LABS: Critical Call Chemistry NUR.RP @0433; Sodium 154 mmol/L (136-145)
[2023-10-22 10:51] LABS: Actual Bicarbonate (HCO3a) 35.6 mEq/L (22-28); Base Excess (BEa) 4.6 mEq/L (-2.0 to +3.0); Calcium, Ionized (arterial) 1.16 mmol/L (1.12-1.30); Potassium - ABG Lab 3.16 mmol/L (3.70-5.30); pH, Arterial 7.228 (7.35-7.45)
[2023-10-22 10:52] LABS: CO2 Tension 87.4 mmHg (35.0-45.0); Puncture Site RBA
[2023-10-22 11:47] LABS: Actual Bicarbonate (HCO3a) 31.3 mEq/L (22-28); Base Excess (BEa) 4.6 mEq/L (-2.0 to +3.0); CO2 Tension 54.2 mmHg (35.0-45.0); Calcium, Ionized (arterial) 1.14 mmol/L (1.12-1.30); O2 Tension (PaO2), arterial 62.3 mmHg (80.0-100.0); Potassium - ABG Lab 3.35 mmol/L (3.70-5.30); pH, Arterial 7.379 (7.35-7.45)
[2023-10-22 11:49] LABS: Puncture Site RBA
[2023-10-22] MEDS: HumaLOG 300 UNITS/3 ML VIAL SC PRN (12:14)
[2023-10-22 12:35] LABS: Anion Gap 10 mmol/L (10-20); BUN (Urea Nitrogen) 37 mg/dL (8.4-25.7); Calc. Creatinine Clearance 113 mL/min (70-130); Calcium 8.1 mg/dL (7.8-10.44); Carbon Dioxide 36 mmol/L (22-29); Chloride 106 mmol/L (98-107); Estimated GFR 108; Glucose 177 mg/dL (70-105); Potassium 3.6 mmol/L (3.5-5.1); Sodium 148 mmol/L (136-145)
[2023-10-22] MEDS: Albumin 25% 25 GM (100 mL) BOT IVPB SCH (14:23)
[2023-10-22] MEDS: Insulin Glargine 30 UNITS/0.3 ML VIAL SC SCH (20:44)
[2023-10-23] MEDS ORDERED: Insulin Glargine 30 UNITS/0.3 ML VIAL SC SCH (00:36)
[2023-10-23 04:32] LABS: #Monocytes 0.4 thou/uL (0.11-0.59); #Neutrophils 3.7 thou/uL (1.40-6.50); %Eosinophils 0.7 % (0.0-10.0); %Lymphocytes 30.5 % (21.0-51.0); %Monocytes 5.8 % (0.0-10.0); %Neutrophils 61.5 % (42.0-75.0); Hematocrit 27.4 % (42.0-52.0); Hemoglobin 8.1 g/dL (14.0-18.0); Mean Corpuscular HGB CONC 29.6 g/dL (32.0-36.0); Mean Corpuscular Hemoglobin 28.1 pg (27.0-31.0); Mean Corpuscular Volume 95.1 fl (78.0-98.0); Mean Platelet Volume 9.9 fL (7.4-10.4); RBC Distribution Width 18.7 % (11.5-14.5); Red Blood Cell (RBC) Count 2.88 mill/uL (4.70-6.10)
[2023-10-23 04:34] LABS: Platelet Count 82 10x3/uL (130-400)
[2023-10-23 05:08] LABS: Anion Gap 11 mmol/L (10-20); BUN (Urea Nitrogen) 39 mg/dL (8.4-25.7); Calc. Creatinine Clearance 136 mL/min (70-130); Calcium 8.1 mg/dL (7.8-10.44); Carbon Dioxide 33 mmol/L (22-29); Chloride 105 mmol/L (98-107); Estimated GFR 114; Potassium 3.1 mmol/L (3.5-5.1); Sodium 146 mmol/L (136-145)
[2023-10-23 05:11] LABS: Glucose 43 mg/dL (70-105)
[2023-10-23 05:24] LABS: Phosphorus Less than 1.0 mg/dL (2.3-4.7)
[2023-10-23] MEDS: Glucagon 1 MG/ML KIT IM PRN (05:56)
[2023-10-23] MEDS: Potassium Phosphate 30 MMOL in Sodium Chloride 0.9% 250 ML 250 ML IVPB SCH (05:57)
[2023-10-23] MEDS: Dextrose 10% in Water 1,000 ML IV SCH (06:27)
[2023-10-23] MEDS: Potassium Bicarbonate/Cit Ac 20 MEQ TAB PER TUBE SCH (09:59)
[2023-10-24 05:11] LABS: #Monocytes 0.3 thou/uL (0.11-0.59); %Basophils 0.2 % (0.0-1.0); %Eosinophils 0.7 % (0.0-10.0); %Lymphocytes 37.8 % (21.0-51.0); %Monocytes 5.7 % (0.0-10.0); %Neutrophils 52.5 % (42.0-75.0); Hematocrit 28.1 % (42.0-52.0); Hemoglobin 8.4 g/dL (14.0-18.0); Mean Corpuscular HGB CONC 29.9 g/dL (32.0-36.0); Mean Corpuscular Hemoglobin 27.7 pg (27.0-31.0); Mean Corpuscular Volume 92.7 fl (78.0-98.0); Mean Platelet Volume 9.5 fL (7.4-10.4); RBC Distribution Width 19.3 % (11.5-14.5); Red Blood Cell (RBC) Count 3.03 mill/uL (4.70-6.10); White Blood Cell (WBC) Count 5.8 10x3/uL (4.8-10.8)
[2023-10-24 05:17] LABS: Platelet Count 85 10x3/uL (130-400)
[2023-10-24 05:54] LABS: Phosphorus 1.9 mg/dL (2.3-4.7)
[2023-10-24 06:01] LABS: Anion Gap 10 mmol/L (10-20); BUN (Urea Nitrogen) 29 mg/dL (8.4-25.7); Calc. Creatinine Clearance 141 mL/min (70-130); Calcium 7.6 mg/dL (7.8-10.44); Carbon Dioxide 33 mmol/L (22-29); Chloride 97 mmol/L (98-107); Estimated GFR 113; Glucose 79 mg/dL (70-105); Magnesium 2.1 mg/dL (1.6-2.6); Sodium 136 mmol/L (136-145)
[2023-10-24] MEDS: Potassium Phosphate 30 MMOL in Sodium Chloride 0.9% 250 ML 250 ML IVPB SCH (07:59)
[2023-10-24 13:41] LABS: Phosphorus 3.6 mg/dL (2.3-4.7)
[2023-10-24] MEDS: Ondansetron PF 4 MG/2 ML Vial IVP PRN (20:43)
[2023-10-25 05:10] LABS: #Eosinphils 0.1 thou/uL (0.0-0.7); #Monocytes 0.4 thou/uL (0.11-0.59); #Neutrophils 3.3 thou/uL (1.40-6.50); %Basophils 0.3 % (0.0-1.0); %Eosinophils 0.9 % (0.0-10.0); %Lymphocytes 31.3 % (21.0-51.0); %Monocytes 7.4 % (0.0-10.0); %Neutrophils 55.5 % (42.0-75.0); Hematocrit 29.9 % (42.0-52.0); Hemoglobin 9.2 g/dL (14.0-18.0); Mean Corpuscular HGB CONC 30.8 g/dL (32.0-36.0); Mean Corpuscular Volume 90.9 fl (78.0-98.0); Mean Platelet Volume 9.9 fL (7.4-10.4); Platelet Count 94 10x3/uL (130-400); RBC Distribution Width 18.4 % (11.5-14.5); Red Blood Cell (RBC) Count 3.29 mill/uL (4.70-6.10); White Blood Cell (WBC) Count 5.9 10x3/uL (4.8-10.8)
[2023-10-25 05:38] LABS: Anion Gap 8 mmol/L (10-20); BUN (Urea Nitrogen) 23 mg/dL (8.4-25.7); Calc. Creatinine Clearance 158 mL/min (70-130); Calcium 7.7 mg/dL (7.8-10.44); Carbon Dioxide 32 mmol/L (22-29); Chloride 89 mmol/L (98-107); Estimated GFR 117; Glucose 87 mg/dL (70-105); Magnesium 1.9 mg/dL (1.6-2.6); Phosphorus 2.7 mg/dL (2.3-4.7); Potassium 3.4 mmol/L (3.5-5.1); Sodium 126 mmol/L (136-145)
[2023-10-25] MEDS: Potassium Phosphate 30 MMOL in Sodium Chloride 0.9% 250 ML 250 ML IVPB SCH (07:59)
[2023-10-25] MEDS: Potassium Bicarbonate/Cit Ac 20 MEQ TAB PER TUBE SCH (08:04)
[2023-10-25 09:57] LABS: Anion Gap 11 mmol/L (10-20); BUN (Urea Nitrogen) 21 mg/dL (8.4-25.7); Calc. Creatinine Clearance 169 mL/min (70-130); Calcium 7.7 mg/dL (7.8-10.44); Carbon Dioxide 30 mmol/L (22-29); Chloride 89 mmol/L (98-107); Estimated GFR 119; Glucose 72 mg/dL (70-105); Potassium 3.9 mmol/L (3.5-5.1); Sodium 126 mmol/L (136-145)
[2023-10-25] MEDS: Magnesium 2 GM/50 ML(in water) 2 GM in Premix 1 BAG IVPB SCH (14:43)
[2023-10-25 15:52] LABS: Bacteria/HPF None Seen HPF (None Seen); Bilirubin Negative (Negative); Blood, Urine Negative (Negative); Clarity Clear (Clear); Glucose, Urine (Dipstick) Normal (Negative); Ketone, Urine Negative (Negative); Leukocyte Negative Leu/uL (Negative); Nitrite Negative (Negative); Protein, Urine (Dipstick) 20 mg/dL (Neg-Trace); RBC/HPF 0-3 HPF (0-3); Specific Gravity, Urine 1.015 (1.002-1.036); Squamous Epithelial 0-3 HPF (0-3); Urobilinogen Normal mg/dL (Less than 2); WBC/HPF 0-3 HPF (0-3)
[2023-10-25 16:41] LABS: Creatinine, Urine Less than 20.00 mg/dL (63-166); Protein, Urine Random Quant 25 mg/dL (1-14)
[2023-10-25 16:58] LABS: Anion Gap 11 mmol/L (10-20); BUN (Urea Nitrogen) 21 mg/dL (8.4-25.7); Calc. Creatinine Clearance 163 mL/min (70-130); Calcium 7.8 mg/dL (7.8-10.44); Carbon Dioxide 31 mmol/L (22-29); Chloride 87 mmol/L (98-107); Estimated GFR 118; Glucose 141 mg/dL (70-105); Potassium 4.9 mmol/L (3.5-5.1); Sodium 124 mmol/L (136-145)
[2023-10-26 05:09] LABS: #Eosinphils 0.1 thou/uL (0.0-0.7); #Monocytes 0.5 thou/uL (0.11-0.59); %Basophils 0.2 % (0.0-1.0); %Eosinophils 1.3 % (0.0-10.0); %Lymphocytes 23.5 % (21.0-51.0); %Monocytes 7.6 % (0.0-10.0); %Neutrophils 63.7 % (42.0-75.0); Hematocrit 29.9 % (42.0-52.0); Hemoglobin 9.2 g/dL (14.0-18.0); Mean Corpuscular HGB CONC 30.8 g/dL (32.0-36.0); Mean Corpuscular Volume 91.2 fl (78.0-98.0); Mean Platelet Volume 9.3 fL (7.4-10.4); Platelet Count 99 10x3/uL (130-400); RBC Distribution Width 18.1 % (11.5-14.5); Red Blood Cell (RBC) Count 3.28 mill/uL (4.70-6.10); White Blood Cell (WBC) Count 6.2 10x3/uL (4.8-10.8)
[2023-10-26 05:33] LABS: Anion Gap 11 mmol/L (10-20); BUN (Urea Nitrogen) 20 mg/dL (8.4-25.7); Calc. Creatinine Clearance 163 mL/min (70-130); Calcium 7.7 mg/dL (7.8-10.44); Carbon Dioxide 34 mmol/L (22-29); Chloride 87 mmol/L (98-107); Estimated GFR 118; Glucose 73 mg/dL (70-105); Magnesium 2.3 mg/dL (1.6-2.6); Phosphorus 2.4 mg/dL (2.3-4.7); Potassium 3.9 mmol/L (3.5-5.1); Sodium 128 mmol/L (136-145)
[2023-10-26] MEDS: Albumin 25% 25 GM (100 mL) BOT IVPB SCH (08:57)
[2023-10-26] MEDS: PHOS-NAK 1 PKT PACK PO SCH (08:57)
[2023-10-26] MEDS: Cholecalciferol 10 MCG/ML (Vitamin D3) 50 ML BOT PO SCH (08:58)
[2023-10-27 06:14] LABS: Anion Gap 12 mmol/L (10-20); BUN (Urea Nitrogen) 14 mg/dL (8.4-25.7); Calc. Creatinine Clearance 145 mL/min (70-130); Calcium 8.5 mg/dL (7.8-10.44); Carbon Dioxide 33 mmol/L (22-29); Chloride 98 mmol/L (98-107); Estimated GFR 114; Glucose 81 mg/dL (70-105); Potassium 3.7 mmol/L (3.5-5.1); Sodium 139 mmol/L (136-145)
[2023-10-27 17:28] LABS: Albumin 3.4 g/dL (3.5-5.0); Anion Gap 16 mmol/L (10-20); BUN (Urea Nitrogen) 15 mg/dL (8.4-25.7); BUN/Creatinine Ratio 21.74; Calc. Creatinine Clearance 129 mL/min (70-130); Calcium 8.9 mg/dL (7.8-10.44); Carbon Dioxide 30 mmol/L (22-29); Chloride 101 mmol/L (98-107); Estimated GFR 111; Glucose 141 mg/dL (70-105); Potassium 4.1 mmol/L (3.5-5.1); Sodium 143 mmol/L (136-145)
[2023-10-28 04:56] LABS: #Eosinphils 0.1 thou/uL (0.0-0.7); #Monocytes 0.8 thou/uL (0.11-0.59); #Neutrophils 4.7 thou/uL (1.40-6.50); %Basophils 0.3 % (0.0-1.0); %Eosinophils 0.9 % (0.0-10.0); %Monocytes 11.3 % (0.0-10.0); %Neutrophils 66.4 % (42.0-75.0); Hematocrit 34.2 % (42.0-52.0); Hemoglobin 10.2 g/dL (14.0-18.0); Mean Corpuscular HGB CONC 29.8 g/dL (32.0-36.0); Mean Corpuscular Hemoglobin 27.6 pg (27.0-31.0); Mean Corpuscular Volume 92.7 fl (78.0-98.0); Mean Platelet Volume 9.7 fL (7.4-10.4); RBC Distribution Width 19.7 % (11.5-14.5); Red Blood Cell (RBC) Count 3.69 mill/uL (4.70-6.10)
[2023-10-28 05:29] LABS: Platelet Count 119 10x3/uL (130-400)
[2023-10-28 05:33] LABS: Anion Gap 13 mmol/L (10-20); BUN (Urea Nitrogen) 16 mg/dL (8.4-25.7); Calc. Creatinine Clearance 133 mL/min (70-130); Calcium 8.9 mg/dL (7.8-10.44); Carbon Dioxide 33 mmol/L (22-29); Chloride 105 mmol/L (98-107); Estimated GFR 112; Glucose 80 mg/dL (70-105); Potassium 3.6 mmol/L (3.5-5.1); Sodium 147 mmol/L (136-145)
[2023-10-28] MEDS: Pantoprazole 40 MG VIAL IVP SCH (08:50)
[2023-10-29 06:55] LABS: #Eosinphils 0.2 thou/uL (0.0-0.7); #Monocytes 0.7 thou/uL (0.11-0.59); #Neutrophils 6.3 thou/uL (1.40-6.50); %Basophils 0.2 % (0.0-1.0); %Eosinophils 1.7 % (0.0-10.0); %Lymphocytes 18.6 % (21.0-51.0); %Monocytes 7.7 % (0.0-10.0); %Neutrophils 71.2 % (42.0-75.0); Hematocrit 35.5 % (42.0-52.0); Hemoglobin 10.3 g/dL (14.0-18.0); Mean Corpuscular Hemoglobin 28.1 pg (27.0-31.0); Mean Platelet Volume 10.5 fL (7.4-10.4); Platelet Count 180 10x3/uL (130-400); Red Blood Cell (RBC) Count 3.66 mill/uL (4.70-6.10); White Blood Cell (WBC) Count 8.8 10x3/uL (4.8-10.8)
[2023-10-29 07:14] LABS: Anion Gap 15 mmol/L (10-20); BUN (Urea Nitrogen) 21 mg/dL (8.4-25.7); Calc. Creatinine Clearance 119 mL/min (70-130); Calcium 9.5 mg/dL (7.8-10.44); Carbon Dioxide 30 mmol/L (22-29); Chloride 111 mmol/L (98-107); Estimated GFR 109; Glucose 93 mg/dL (70-105); Potassium 4.1 mmol/L (3.5-5.1)
[2023-10-29 07:24] LABS: Critical Call Chemistry NUR.BME@0730; Sodium 152 mmol/L (136-145)
[2023-10-30 06:41] LABS: Anion Gap 15 mmol/L (10-20); BUN (Urea Nitrogen) 26 mg/dL (8.4-25.7); Calc. Creatinine Clearance 110 mL/min (70-130); Calcium 9.6 mg/dL (7.8-10.44); Carbon Dioxide 32 mmol/L (22-29); Chloride 111 mmol/L (98-107); Estimated GFR 106; Glucose 90 mg/dL (70-105); Potassium 3.5 mmol/L (3.5-5.1)
[2023-10-30 06:47] LABS: Critical Call Chemistry MANOR.JRR@0646; Sodium 154 mmol/L (136-145)
[2023-10-30] MEDS: Dextrose 5% in Water 1,000 ML IV SCH ×2 (10:20→12:03)
[2023-10-31 06:12] LABS: Anion Gap 18 mmol/L (10-20); BUN (Urea Nitrogen) 27 mg/dL (8.4-25.7); Calc. Creatinine Clearance 121 mL/min (70-130); Calcium 8.4 mg/dL (7.8-10.44); Carbon Dioxide 21 mmol/L (22-29); Chloride 106 mmol/L (98-107); Estimated GFR 109; Glucose 94 mg/dL (70-105); Potassium 4.5 mmol/L (3.5-5.1); Sodium 140 mmol/L (136-145)
[2023-10-31] MEDS: Dextrose 5% in Water 1,000 ML IV SCH (09:22)
[2023-10-31 18:51] VITALS: BP 101/60; TEMP 97.7
[2023-11-01] MEDS ORDERED: Cholecalciferol 10 MCG/ML (Vitamin D3) 50 ML BOT PO SCH (09:00)
== END 2023-10-31 20:20 | disposition home or self-care (01) | DRG 314 ==
LOC: ERS 23:22 → CCU 10-17 02:30 → T4-A 10-19 15:22 → CCU 10-21 13:56 → IMCU/EMU 10-22 07:24 → CCU 10-22 11:14 → T4-A 10-27 17:20
PROVIDERS: ADMIT Student in an Organized Health Care Education/Training Program; ATTEND Internal Medicine
PROC: 5A1945Z Respiratory Ventilation, 24-96 Consecutive Hours (ICD-10-PCS; 2023-10-17)
PROC: 0B21XFZ Change Tracheostomy Device in Trachea, External Approach (ICD-10-PCS; 2023-10-17)
PROC: 30233N1 Transfusion of Nonautologous Red Blood Cells into Peripheral Vein, Percutaneous Approach (ICD-10-PCS; 2023-10-18)
PROC: 05PYX3Z Removal of Infusion Device from Upper Vein, External Approach (ICD-10-PCS; principal; 2023-10-20)
PROC: 5A0935A Assistance with Respiratory Ventilation, Less than 24 Consecutive Hours, High Flow/Velocity Cannula (ICD-10-PCS; 2023-10-21)
PROC: 5A1945Z Respiratory Ventilation, 24-96 Consecutive Hours (ICD-10-PCS; 2023-10-22)
DX: T80.211A Bloodstream infection due to central venous catheter, initial encounter (principal); A41.52 Sepsis due to Pseudomonas; J96.21 Acute and chronic respiratory failure with hypoxia; J96.22 Acute and chronic respiratory failure with hypercapnia; G93.41 Metabolic encephalopathy; R53.2 Functional quadriplegia; R65.21 Severe sepsis with septic shock; E87.20 Acidosis, unspecified; E87.1 Hypo-osmolality and hyponatremia; C96.6 Unifocal Langerhans-cell histiocytosis; E66.2 Morbid (severe) obesity with alveolar hypoventilation; E87.0 Hyperosmolality and hypernatremia; E23.2 Diabetes insipidus; J84.10 Pulmonary fibrosis, unspecified; J45.909 Unspecified asthma, uncomplicated; E78.5 Hyperlipidemia, unspecified; I10 Essential (primary) hypertension; D64.9 Anemia, unspecified; Y84.8 Other medical procedures as the cause of abnormal reaction of the patient, or of later complication, without mention of misadventure at the time of the procedure; E87.6 Hypokalemia; E83.39 Other disorders of phosphorus metabolism; E11.649 Type 2 diabetes mellitus with hypoglycemia without coma; Z93.3 Colostomy status; Z79.4 Long term (current) use of insulin; Z79.899 Other long term (current) drug therapy; Z87.891 Personal history of nicotine dependence
CPT/HCPCS: 31502; 36415; 36416; 36430; 36600; 71045; 80048; 80053; 81001; 82040; 82306; 82570; 82728; 82805; 83540; 83550; 83605; 83735; 83880; 83930; 84100; 84145; 84156; 84484; 85025; 86140; 86850; 86900; 86901; 87040; 87077; 87149; 87186; 93005; 94002; 94003; 94640; 96365; 96367; 96375; 97139; C9113; J0692; J1611; J1630; J1650; J1815; J1940; J2001; J2060; J2405; J2597; J2920; J2930; J3370-JW; J3475; J3490; J7050; J7070; J7512; J7620; J7999; P9016; P9047

== ENCOUNTER 2023-12-16 19:28 | Inpatient (IN) | payer OTHER, MEDICAID ==
[~2023-12-16 19:28] MED LIST: Iopamidol-370 76% 500 ML MDV (1 ML CHARGE) ONE
[2023-12-16] MEDS ORDERED: fentaNYL 50 mcg/mL 1 mL Vial ONE (19:36)
[2023-12-16] MEDS ORDERED: dilTIAZem 25 MG/5 ML VIAL ONE (19:51)
[2023-12-16 20:26] LABS: Actual Bicarbonate (HCO3a) 19.6 mEq/L (22-28); Analyzer IN Cardio ER; Base Excess (BEa) -9.1 mEq/L (-2.0 to +3.0); CO2 Tension 57.3 mmHg (35.0-45.0); Calcium, Ionized (arterial) 0.97 mmol/L (1.12-1.30); Carboxyhemoglobin (COHb) 0.9 gm% (0.0-3.0); Hematocrit-ABG 29 % (42.0-52.0); Hemoglobin (Hb) 9.8 g/dL (14.0-18.0); O2 Tension (PaO2), arterial 60.2 mmHg (80.0-100.0); Potassium - ABG Lab 3.39 mmol/L (3.70-5.30)
[2023-12-16 20:29] LABS: Puncture Site RRA; pH, Arterial 7.153 (7.35-7.45)
[2023-12-16 20:40] LABS: Hematocrit 29.9 % (42.0-52.0); Hemoglobin 8.8 g/dL (14.0-18.0); Mean Corpuscular HGB CONC 29.4 g/dL (32.0-36.0); Mean Corpuscular Hemoglobin 30.1 pg (27.0-31.0); Mean Corpuscular Volume 102.4 fL (78.0-98.0); Mean Platelet Volume 11.7 fL (7.4-10.4); Platelet Count 63 10x3/uL (130-400); RBC Distribution Width 18.3 % (11.5-14.5); Red Blood Cell (RBC) Count 2.92 mill/uL (4.70-6.10)
[2023-12-16] MEDS ORDERED: Sodium Chloride 0.9% 1,000 ML IV SCH (20:45)
[2023-12-16] MEDS ORDERED: Ondansetron ODT 4 MG TAB PO PRN (20:46)
[2023-12-16] MEDS ORDERED: NOREPINEPHRINE 8 MG/250 ML-D5W 250 ML IVPB PRN (20:46)
[2023-12-16] MEDS ORDERED: Acetaminophen 650 MG Suppository PR PRN (20:46)
[2023-12-16] MEDS ORDERED: Dextrose 5% in Water 1,000 ML IV PRN (20:49)
[2023-12-16] MEDS ORDERED: Glucagon 1 MG/ML KIT IM PRN (20:49)
[2023-12-16 20:54] LABS: Bacteria/HPF 4+ HPF (None Seen); Bilirubin Negative (Negative); Blood, Urine Negative (Negative); CAUTI Indications for Culture Alt mental st,lethar; Clarity Extra Turbid (Clear); Glucose, Urine (Dipstick) >=1000 mg/dL (Negative); Ketone, Urine Negative (Negative); Leukocyte 500 Leu/uL (Negative); Nitrite Negative (Negative); Protein, Urine (Dipstick) 70 mg/dL (Neg-Trace); Renal Epithelial 0-3 HPF (None Seen); Specific Gravity, Urine 1.011 (1.002-1.036); Squamous Epithelial 0-3 HPF (0-3); Urobilinogen Normal mg/dL (Less than 2); WBC/HPF Greater than 50 HPF (0-3); Yeast-Budding Rare HPF (None Seen)
[2023-12-16] MEDS ORDERED: Vancomycin 1 GM/200 ML (FROZEN) BAG ONE (20:54)
[2023-12-16] MEDS ORDERED: Cefepime 2 GM VIAL ONE (20:54)
[2023-12-16] MEDS ORDERED: NOREPINEPHRINE 8 MG/250 ML-D5W 250 ML ONE (20:54)
[2023-12-16 20:57] LABS: Anion Gap 31 mmol/L (10-20); Globulin 3.8 g/dL (2.4-3.5)
[2023-12-16 20:58] LABS: Urine Culture Reflex Yes Yes
[2023-12-16 20:59] LABS: Troponin I 0.026 ng/mL (< 0.028)
[2023-12-16] MEDS ORDERED: Propofol 1,000 MG/100 ML VIAL IV PRN (21:00)
[2023-12-16] MEDS ORDERED: Fentanyl CADD 100 ML IV SCH (21:00)
[2023-12-16] MEDS ORDERED: Propofol BOLUS 1,000 MG/100 ML VIAL IV PRN (21:00)
[2023-12-16] MEDS ORDERED: Fentanyl BOLUS 250 ML IVPB PRN (21:00)
[2023-12-16] MEDS ORDERED: Ventilator Sedation Protocol FS SCH (21:00)
[2023-12-16] MEDS ORDERED: NOREPINEPHRINE 8 MG/250 ML-D5W 250 ML IVPB SCH (21:00)
[2023-12-16] MEDS ORDERED: DISCONTINUE PREVIOUS NARCOTIC PAIN MEDICATIONS AND BENZODIAZEPINES FS SCH (21:00)
[2023-12-16 21:01] LABS: ALT (SGPT) 18 U/L (8-55); AST (SGOT) 35 U/L (5-34); Albumin 1.6 g/dL (3.5-5.0); Alkaline Phosphatase 310 U/L (40-110); BUN (Urea Nitrogen) 37 mg/dL (8.4-25.7); Bilirubin, Total 0.7 mg/dL (0.2-1.2); Calc. Creatinine Clearance 0 mL/min (70-130); Calcium 7.3 mg/dL (7.8-10.44); Carbon Dioxide 17 mmol/L (22-29); Chloride 98 mmol/L (98-107); Estimated GFR 99; Glucose 127 mg/dL (70-105); Lipase 36 U/L (8-78); Potassium 3.3 mmol/L (3.5-5.1); Protein, Total 5.4 g/dL (6.0-8.3); Sodium 143 mmol/L (136-145)
[2023-12-16] MEDS ORDERED: Ipratropium/Albuterol 3 ML NEB NEB PRN ×2 (21:15→22:03)
[2023-12-16] MEDS ORDERED: Sodium Bicarb 50 mEq/50 ML VIAL ONE (21:31)
[2023-12-16 21:33] LABS: #Basophils Less than 0.03 10x3/uL (0.0-0.2); #Eosinphils Less than 0.03 10x3/uL (0.0-0.7); %Basophils 0.1 % (0.0-1.0); %Lymphocytes 21.4 % (21.0-51.0); %Monocytes 4.9 % (0.0-10.0); %Neutrophils 61.4 % (42.0-75.0); Band 14 % (5-11); Blast 0 % (0-0); Eosinophils 0 % (0-10); Hypochromia SLIGHT = 6-15 cells (100X) (0-5/hpf); Lymphocytes 27 % (21-51); Macrocytosis SLIGHT = 6-15 cells (100X) (0-5/hpf); Metamyelocyte 0 % (0-0); Monocytes 9 % (0-10); Myelocyte 0 % (0-0); Neutrophil 50 % (42-75); Plasma Cells 0 % (0-0); Platelet Adequacy Comment Appears Decreased; Promyelocytes 0 % (0-0); Reactive Lymphocytes 0 % (0-10); Total Cell Count 100
[2023-12-16] MEDS ORDERED: Electrolyte Replacement Protocol FS PRN (22:15)
[2023-12-16] MEDS: Lactated Ringer's 1,000 ML IV SCH (23:03)
[2023-12-16] MEDS: Digoxin 0.5 MG/2 ML AMP SLOW IVP SCH (23:04)
[2023-12-16 23:12] LABS: Actual Bicarbonate (HCO3a) 23.4 mEq/L (22-28); Base Excess (BEa) -4.1 mEq/L (-2.0 to +3.0); CO2 Tension 55.2 mmHg (35.0-45.0); Carboxyhemoglobin (COHb) 0.5 gm% (0.0-3.0); Hematocrit-ABG 28 % (42.0-52.0); Hemoglobin (Hb) 9.5 g/dL (14.0-18.0); Potassium - ABG Lab 3.38 mmol/L (3.70-5.30); pH, Arterial 7.245 (7.35-7.45)
[2023-12-16 23:13] LABS: O2 Tension (PaO2), arterial 59.2 mmHg (80.0-100.0)
[2023-12-16 23:14] LABS: Puncture Site RBA
[2023-12-16] MEDS: Ipratropium/Albuterol 3 ML NEB NEB SCH (23:19)
[2023-12-16] MEDS: Digoxin 0.5 MG/2 ML AMP ONE (23:40)
[2023-12-17] MEDS: Sodium Bicarbonate 75 MEQ in Sodium Chloride 0.45% 1,000 ML IV SCH (00:01)
[2023-12-17] MEDS: Sodium Bicarb 50 mEq/50 ML VIAL IVP SCH (00:16)
[2023-12-17] MEDS: Electrolyte Replacement Protocol 1 EACH FS ONE (00:17)
[2023-12-17] MEDS: Hydrocortisone Sod Succ/PF 100 mg/2 ml Vial IVP SCH (00:17)
[2023-12-17] MEDS: Potassium Chloride 20 MEQ in Premix 1 BAG IVPB SCH (00:21)
[2023-12-17] MEDS: Vancomycin (BATCH) 1.75 GM in Premix 1 BAG IVPB SCH (00:55)
[2023-12-17] MEDS: NOREPINEPHRINE 8 MG/250 ML-D5W 250 ML IVPB PRN (00:55)
[2023-12-17 00:56] LABS: Actual Bicarbonate (HCO3a) 25.6 mEq/L (22-28); Base Excess (BEa) -1.7 mEq/L (-2.0 to +3.0); CO2 Tension 56.8 mmHg (35.0-45.0); Carboxyhemoglobin (COHb) 0.8 gm% (0.0-3.0); Hematocrit-ABG 28 % (42.0-52.0); Hemoglobin (Hb) 9.4 g/dL (14.0-18.0); O2 Tension (PaO2), arterial 74.8 mmHg (80.0-100.0); Potassium - ABG Lab 3.89 mmol/L (3.70-5.30); pH, Arterial 7.271 (7.35-7.45)
[2023-12-17 00:57] LABS: Puncture Site RRA
[2023-12-17] MEDS: EPINEPHrine 4 MG in Dextrose 5% in Water 250 ML IVP SCH (01:25)
[2023-12-17] MEDS: Vasopressin 20 UNITS in Sodium Chloride 0.9% 50 ML IV SCH (02:02)
[2023-12-17] MEDS: Amiodarone 450 MG in Dextrose 5% in Water 250 ML IVPB SCH (02:17)
[2023-12-17] MEDS: Sodium Chloride 0.9% 1,000 ML IV SCH (02:43)
[2023-12-17 03:50] LABS: Hematocrit 27.1 % (42.0-52.0); Hemoglobin 8.2 g/dL (14.0-18.0); Mean Corpuscular HGB CONC 30.3 g/dL (32.0-36.0); Mean Corpuscular Hemoglobin 28.9 pg (27.0-31.0); Mean Corpuscular Volume 95.4 fL (78.0-98.0); Mean Platelet Volume 10.4 fL (7.4-10.4); Platelet Count 48 10x3/uL (130-400); RBC Distribution Width 18.3 % (11.5-14.5); Red Blood Cell (RBC) Count 2.84 mill/uL (4.70-6.10)
[2023-12-17 04:18] LABS: Anion Gap 23 mmol/L (10-20)
[2023-12-17 04:21] LABS: INR-International Normal Ratio 1.3; Prothrombin Time 16.1 sec (12.0-14.7)
[2023-12-17 04:22] LABS: BUN (Urea Nitrogen) 33 mg/dL (8.4-25.7); Calc. Creatinine Clearance 115 mL/min (70-130); Calcium 7.5 mg/dL (7.8-10.44); Carbon Dioxide 27 mmol/L (22-29); Chloride 98 mmol/L (98-107); Estimated GFR 109; Glucose 144 mg/dL (70-105); Magnesium 1.8 mg/dL (1.6-2.6); PTT 45.1 sec (22.9-36.1); Potassium 3.8 mmol/L (3.5-5.1); Sodium 144 mmol/L (136-145)
[2023-12-17 04:23] LABS: Digoxin 0.83 ng/mL (0.8-2.0)
[2023-12-17 04:24] LABS: Lactic Acid 6.8 mmol/L (0.5-2.2)
[2023-12-17 04:36] LABS: Band 33 % (5-11); Eosinophils 4 % (0-10); Hypochromia SLIGHT = 6-15 cells HPF (0-5); Large Platelets 0.9 % (0-5); Lymphocytes 16 % (21-51); Monocytes 5 % (0-10); Neutrophil 36 % (42-75); Nucleated RBC (Manual Ct) 1 % (0); Platelet Adequacy Comment Platelets Decreased; Reactive Lymphocytes 6 % (0-10)
[2023-12-17] MEDS: Lactated Ringer's 1,000 ML IV SCH (05:13)
[2023-12-17] MEDS: metroNIDAZOLE 500 MG in Premix 1 BAG IVPB SCH (05:13)
[2023-12-17] MEDS: Magnesium 2 GM/50 ML(in water) 2 GM in Premix 1 BAG IVPB SCH (05:13)
[2023-12-17] MEDS: Acetaminophen 325 MG TAB PO PRN (07:12)
[2023-12-17] MEDS: Cefepime 2 GM in Sodium Chloride 0.9% 100 ML IVPB SCH (07:40)
[2023-12-17] MEDS: Enoxaparin 40 MG (0.4 mL) SYRINGE SC SCH (07:40)
[2023-12-17] MEDS: Pantoprazole 40 MG VIAL IVP SCH (07:41)
[2023-12-17] MEDS ORDERED: Vancomycin 1.5 GM in Sodium Chloride 0.9% 250 ML 300 ML IVPB SCH (09:00)
[2023-12-17 09:22] LABS: Magnesium 2.2 mg/dL (1.6-2.6)
[2023-12-17] MEDS: Vancomycin HCl 500 MG in Sodium Chloride 0.9% 100 ML IVPB SCH (13:39)
[2023-12-18] MEDS: Morphine 2 MG/ML VIAL SLOW IVP PRN (01:44)
[2023-12-18 05:19] LABS: Hematocrit 19.5 % (42.0-52.0); Hemoglobin 6.3 g/dL (14.0-18.0); Mean Corpuscular HGB CONC 32.3 g/dL (32.0-36.0); Mean Corpuscular Hemoglobin 28.5 pg (27.0-31.0); Mean Corpuscular Volume 88.2 fL (78.0-98.0); Platelet Count 22 10x3/uL (130-400); RBC Distribution Width 18.2 % (11.5-14.5); Red Blood Cell (RBC) Count 2.21 mill/uL (4.70-6.10)
[2023-12-18 05:26] LABS: Anion Gap 17 mmol/L (10-20)
[2023-12-18 05:28] LABS: Vancomycin, Random 22.9 ug/mL (See Comment)
[2023-12-18 05:33] LABS: BUN (Urea Nitrogen) 23 mg/dL (8.4-25.7); Calc. Creatinine Clearance 136 mL/min (70-130); Calcium 7.2 mg/dL (7.8-10.44); Carbon Dioxide 28 mmol/L (22-29); Chloride 103 mmol/L (98-107); Estimated GFR 114; Glucose 95 mg/dL (70-105); Potassium 2.8 mmol/L (3.5-5.1); Sodium 145 mmol/L (136-145)
[2023-12-18] MEDS ORDERED: Potassium Bicarbonate/Cit Ac 20 MEQ TAB PER TUBE PRN (05:42)
[2023-12-18 05:49] LABS: #Basophils Less than 0.03 10x3/uL (0.0-0.2); #Eosinphils Less than 0.03 10x3/uL (0.0-0.7); %Lymphocytes 19.9 % (21.0-51.0); %Monocytes 4.5 % (0.0-10.0); %Neutrophils 75.3 % (42.0-75.0); Hematocrit 18.9 % (42.0-52.0); Hemoglobin 6.2 g/dL (14.0-18.0); Mean Corpuscular HGB CONC 32.8 g/dL (32.0-36.0); Mean Corpuscular Hemoglobin 28.8 pg (27.0-31.0); Mean Corpuscular Volume 87.9 fL (78.0-98.0); Mean Platelet Volume 8.3 fL (7.4-10.4); Platelet Count 22 10x3/uL (130-400); RBC Distribution Width 17.9 % (11.5-14.5); Red Blood Cell (RBC) Count 2.15 mill/uL (4.70-6.10)
[2023-12-18 05:57] LABS: INR-International Normal Ratio 1.4; Prothrombin Time 16.9 sec (12.0-14.7)
[2023-12-18 05:58] LABS: Fibrinogen 644 mg/dL (253-463); PTT 52.6 sec (22.9-36.1)
[2023-12-18 06:07] LABS: D-Dimer Test 5.81 mcg/mL (0.27-0.43)
[2023-12-18 06:11] LABS: Platelet Count 23 10x3/uL (130-400)
[2023-12-18 06:19] LABS: Anisocytosis MODERATE=16-30 cells HPF (0-5); Band 39 % (5-11); Dohle Bodies SLIGHT; Hypochromia SLIGHT = 6-15 cells HPF (0-5); Large Platelets 0.9 % (0-5); Lymphocytes 17 % (21-51); Macrocytosis MODERATE=16-30 cells HPF (0-5); Monocytes 8 % (0-10); Neutrophil 36 % (42-75); Ovalocytes SLIGHT = 2-5 cells HPF (0-1); Platelet Adequacy Comment Significant Decrease; Polychromasia MODERATE = 3-4 cells HPF (0-2); Smudge Cells 31.9 %; Target Cells SLIGHT = 2-5 cells HPF (0-1)
[2023-12-18] MEDS: Potassium Chloride 20 MEQ in Premix 1 BAG IVPB SCH (06:27)
[2023-12-18] MEDS: tiZANidine HCl 4 MG TAB PER TUBE PRN (09:55)
[2023-12-18 09:59] LABS: Lactic Acid 1.2 mmol/L (0.5-2.2)
[2023-12-18 12:02] LABS: Vancomycin, Random 14.7 ug/mL (See Comment)
[2023-12-18] MEDS ORDERED: NOREPINEPHRINE 8 MG/250 ML-D5W 250 ML IVPB SCH (12:15)
[2023-12-18 12:37] LABS: Hematocrit 21.2 % (42.0-52.0); Hemoglobin 6.8 g/dL (14.0-18.0)
[2023-12-18] MEDS: Lactated Ringer's 500 ML IV SCH (13:20)
[2023-12-18] MEDS: Vancomycin HCl 750 MG in Sodium Chloride 0.9% 250 ML 250 ML IVPB SCH (13:38)
[2023-12-18] MEDS: Gabapentin 100 MG CAP PER TUBE PRN (13:41)
[2023-12-18] MEDS: Meropenem 1 GM in Sodium Chloride 0.9% 100 ML IVPB SCH ×2 (14:50→22:59)
[2023-12-18] MEDS: traMADol HCl 50 MG TAB PER TUBE PRN (15:33)
[2023-12-19 00:54] LABS: #Basophils Less than 0.03 10x3/uL (0.0-0.2); #Eosinphils Less than 0.03 10x3/uL (0.0-0.7); %Basophils 0.2 % (0.0-1.0); %Lymphocytes 6.4 % (21.0-51.0); %Monocytes 5.6 % (0.0-10.0); %Neutrophils 87.2 % (42.0-75.0); Hematocrit 31.7 % (42.0-52.0); Hemoglobin 10.3 g/dL (14.0-18.0); Mean Corpuscular HGB CONC 32.5 g/dL (32.0-36.0); Mean Corpuscular Hemoglobin 28.7 pg (27.0-31.0); Mean Corpuscular Volume 88.3 fL (78.0-98.0); Mean Platelet Volume 9.6 fL (7.4-10.4); Platelet Count 49 10x3/uL (130-400); RBC Distribution Width 19.9 % (11.5-14.5); Red Blood Cell (RBC) Count 3.59 mill/uL (4.70-6.10)
[2023-12-19 01:12] LABS: Anion Gap 19 mmol/L (10-20); Globulin 4.2 g/dL (2.4-3.5)
[2023-12-19 01:16] LABS: ALT (SGPT) 19 U/L (8-55); AST (SGOT) 39 U/L (5-34); Albumin 1.5 g/dL (3.5-5.0); Alkaline Phosphatase 189 U/L (40-110); BUN (Urea Nitrogen) 24 mg/dL (8.4-25.7); Bilirubin, Total 0.5 mg/dL (0.2-1.2); Calc. Creatinine Clearance 117 mL/min (70-130); Carbon Dioxide 25 mmol/L (22-29); Chloride 107 mmol/L (98-107); Estimated GFR 110; Glucose 160 mg/dL (70-105); Potassium 3.3 mmol/L (3.5-5.1); Protein, Total 5.7 g/dL (6.0-8.3); Sodium 148 mmol/L (136-145)
[2023-12-19] MEDS: Lorazepam 2 MG/ML VIAL SLOW IVP PRN (02:42)
[2023-12-19] MEDS: Potassium Chloride 20 MEQ in Premix 1 BAG IVPB SCH (03:00)
[2023-12-19 04:36] LABS: Hematocrit 30.2 % (42.0-52.0); Hemoglobin 9.8 g/dL (14.0-18.0); Mean Corpuscular HGB CONC 32.5 g/dL (32.0-36.0); Mean Corpuscular Hemoglobin 28.5 pg (27.0-31.0); Mean Corpuscular Volume 87.8 fL (78.0-98.0); Mean Platelet Volume 9.8 fL (7.4-10.4); Platelet Count 45 10x3/uL (130-400); RBC Distribution Width 19.8 % (11.5-14.5); Red Blood Cell (RBC) Count 3.44 mill/uL (4.70-6.10)
[2023-12-19 04:46] LABS: Anion Gap 18 mmol/L (10-20)
[2023-12-19 04:48] LABS: BUN (Urea Nitrogen) 24 mg/dL (8.4-25.7); Calc. Creatinine Clearance 122 mL/min (70-130); Calcium 7.9 mg/dL (7.8-10.44); Carbon Dioxide 25 mmol/L (22-29); Chloride 108 mmol/L (98-107); Estimated GFR 111; Glucose 147 mg/dL (70-105); Potassium 3.1 mmol/L (3.5-5.1); Sodium 148 mmol/L (136-145); Vancomycin, Random 31.3 ug/mL (See Comment)
[2023-12-19 05:30] LABS: Band 28 % (5-11); Blast 0 % (0-0); Eosinophils 0 % (0-10); Hypochromia SLIGHT = 6-15 cells (100X) (0-5/hpf); Lymphocytes 4 % (21-51); Metamyelocyte 1 % (0-0); Monocytes 7 % (0-10); Myelocyte 0 % (0-0); Neutrophil 60 % (42-75); Plasma Cells 0 % (0-0); Platelet Adequacy Comment Appears Decreased; Promyelocytes 0 % (0-0); Reactive Lymphocytes 0 % (0-10); Total Cell Count 100
[2023-12-19] MEDS: HumaLOG 300 UNITS/3 ML VIAL SC PRN (06:21)
[2023-12-19] MEDS: HYDROcodone/Acetaminophen 5/325 mg Tablet PER TUBE PRN (11:23)
[2023-12-19] MEDS: Vancomycin HCl 750 MG in Sodium Chloride 0.9% 250 ML 250 ML IVPB SCH (12:24)
[2023-12-19] MEDS: Ondansetron PF 4 MG/2 ML Vial IVP PRN (14:44)
[2023-12-19] MEDS: Hydrocortisone Sod Succ/PF 100 mg/2 ml Vial IVP SCH (20:40)
[2023-12-20] MEDS: fentaNYL 50 mcg/mL 1 mL Vial SLOW IVP SCH (01:13)
[2023-12-20 04:51] LABS: Hematocrit 32.6 % (42.0-52.0); Hemoglobin 10.3 g/dL (14.0-18.0); Mean Corpuscular HGB CONC 31.6 g/dL (32.0-36.0); Mean Corpuscular Hemoglobin 28.5 pg (27.0-31.0); Mean Corpuscular Volume 90.3 fL (78.0-98.0); Mean Platelet Volume 9.6 fL (7.4-10.4); Platelet Count 35 10x3/uL (130-400); RBC Distribution Width 20.5 % (11.5-14.5); Red Blood Cell (RBC) Count 3.61 mill/uL (4.70-6.10)
[2023-12-20 05:04] LABS: Anion Gap 13 mmol/L (10-20)
[2023-12-20 05:12] LABS: BUN (Urea Nitrogen) 24 mg/dL (8.4-25.7); Calc. Creatinine Clearance 141 mL/min (70-130); Calcium 7.8 mg/dL (7.8-10.44); Carbon Dioxide 29 mmol/L (22-29); Chloride 115 mmol/L (98-107); Estimated GFR 112; Glucose 206 mg/dL (70-105); Potassium 3.1 mmol/L (3.5-5.1); Sodium 154 mmol/L (136-145)
[2023-12-20 05:40] LABS: Anisocytosis MODERATE=16-30 cells HPF (0-5); Band 16 % (5-11); Burr Cells SLIGHT = 2-5 cells HPF (0-1); Macrocytosis SLIGHT = 6-15 cells HPF (0-5); Monocytes 3 % (0-10); Neutrophil 81 % (42-75); Ovalocytes SLIGHT = 2-5 cells HPF (0-1); Platelet Adequacy Comment Significant Decrease; Poikilocytosis SLIGHT = 6-15 cells HPF (0-5); Polychromasia MODERATE = 3-4 cells HPF (0-2); Smudge Cells 8.9 %; Target Cells SLIGHT = 2-5 cells HPF (0-1)
[2023-12-20] MEDS: Potassium Chloride 20 MEQ in Premix 1 BAG IVPB SCH (06:11)
[2023-12-20] MEDS: Desmopressin Acetate 4 mcg/ml AMPUL IVP SCH (08:23)
[2023-12-20] MEDS: Nystatin Powder 15 GM BOT TOP PRN (09:30)
[2023-12-21 04:36] LABS: #Basophils Less than 0.03 10x3/uL (0.0-0.2); #Eosinphils Less than 0.03 10x3/uL (0.0-0.7); %Basophils 0.2 % (0.0-1.0); %Monocytes 3.9 % (0.0-10.0); Hemoglobin 9.7 g/dL (14.0-18.0); Mean Corpuscular HGB CONC 32.3 g/dL (32.0-36.0); Mean Corpuscular Hemoglobin 28.6 pg (27.0-31.0); Mean Corpuscular Volume 88.5 fL (78.0-98.0); Mean Platelet Volume 10.2 fL (7.4-10.4); Platelet Count 34 10x3/uL (130-400); RBC Distribution Width 20.2 % (11.5-14.5); Red Blood Cell (RBC) Count 3.39 mill/uL (4.70-6.10)
[2023-12-21 04:54] LABS: Vancomycin, Random 18.1 ug/mL (See Comment)
[2023-12-21 05:00] LABS: Anion Gap 14 mmol/L (10-20); BUN (Urea Nitrogen) 33 mg/dL (8.4-25.7); Calc. Creatinine Clearance 138 mL/min (70-130); Calcium 7.7 mg/dL (7.8-10.44); Carbon Dioxide 30 mmol/L (22-29); Chloride 113 mmol/L (98-107); Estimated GFR 110; Glucose 205 mg/dL (70-105); Potassium 3.5 mmol/L (3.5-5.1); Sodium 153 mmol/L (136-145)
[2023-12-21 07:22] LABS: Actual Bicarbonate (HCO3a) 30.1 mEq/L (22-28); Base Excess (BEa) 4.5 mEq/L (-2.0 to +3.0); CO2 Tension 50.1 mmHg (35.0-45.0); Calcium, Ionized (arterial) 1.14 mmol/L (1.12-1.30); Carboxyhemoglobin (COHb) 0.4 gm% (0.0-3.0); Hematocrit-ABG 29 % (42.0-52.0); Hemoglobin (Hb) 9.9 g/dL (14.0-18.0); O2 Tension (PaO2), arterial 113.1 mmHg (80.0-100.0); Potassium - ABG Lab 3.53 mmol/L (3.70-5.30); pH, Arterial 7.396 (7.35-7.45)
[2023-12-21 07:23] LABS: ALV-art Gradient 109.475 mmHg (0-20); Puncture Site RRA
[2023-12-21] MEDS: Dextrose 5% in Water 1,000 ML IV SCH (09:12)
[2023-12-21] MEDS: Potassium Chloride 20 MEQ in Premix 1 BAG IVPB SCH (14:05)
[2023-12-22 06:24] LABS: #Basophils Less than 0.03 10x3/uL (0.0-0.2); #Eosinphils Less than 0.03 10x3/uL (0.0-0.7); %Lymphocytes 12.2 % (21.0-51.0); %Monocytes 4.2 % (0.0-10.0); %Neutrophils 81.9 % (42.0-75.0); Hematocrit 28.4 % (42.0-52.0); Hemoglobin 8.7 g/dL (14.0-18.0); Mean Corpuscular HGB CONC 30.6 g/dL (32.0-36.0); Mean Corpuscular Hemoglobin 28.9 pg (27.0-31.0); Mean Corpuscular Volume 94.4 fL (78.0-98.0); Platelet Count 31 10x3/uL (130-400); RBC Distribution Width 19.6 % (11.5-14.5); Red Blood Cell (RBC) Count 3.01 mill/uL (4.70-6.10)
[2023-12-22 06:30] LABS: Anion Gap 10 mmol/L (10-20); BUN (Urea Nitrogen) 37 mg/dL (8.4-25.7); Calc. Creatinine Clearance 148 mL/min (70-130); Calcium 7.4 mg/dL (7.8-10.44); Carbon Dioxide 30 mmol/L (22-29); Chloride 110 mmol/L (98-107); Estimated GFR 114; Glucose 227 mg/dL (70-105); Potassium 4.3 mmol/L (3.5-5.1); Sodium 146 mmol/L (136-145)
[2023-12-22 07:26] LABS: Actual Bicarbonate (HCO3a) 31.2 mEq/L (22-28); Base Excess (BEa) 6.3 mEq/L (-2.0 to +3.0); CO2 Tension 46.9 mmHg (35.0-45.0); Calcium, Ionized (arterial) 1.09 mmol/L (1.12-1.30); Carboxyhemoglobin (COHb) 0.5 gm% (0.0-3.0); Hematocrit-ABG 27 % (42.0-52.0); Hemoglobin (Hb) 9.2 g/dL (14.0-18.0); O2 Tension (PaO2), arterial 91.8 mmHg (80.0-100.0); Potassium - ABG Lab 4.16 mmol/L (3.70-5.30); pH, Arterial 7.441 (7.35-7.45)
[2023-12-22 07:32] LABS: Puncture Site RRA
[2023-12-23] MEDS: HumaLOG 300 UNITS/3 ML VIAL SC PRN (04:10)
[2023-12-23 04:12] LABS: #Basophils Less than 0.03 10x3/uL (0.0-0.2); #Eosinphils Less than 0.03 10x3/uL (0.0-0.7); %Lymphocytes 13.9 % (21.0-51.0); %Monocytes 3.7 % (0.0-10.0); %Neutrophils 79.5 % (42.0-75.0); Hemoglobin 8.9 g/dL (14.0-18.0); Mean Corpuscular HGB CONC 31.8 g/dL (32.0-36.0); Mean Corpuscular Hemoglobin 28.4 pg (27.0-31.0); Mean Corpuscular Volume 89.5 fL (78.0-98.0); Mean Platelet Volume 11.7 fL (7.4-10.4); Platelet Count 37 10x3/uL (130-400); RBC Distribution Width 18.6 % (11.5-14.5); Red Blood Cell (RBC) Count 3.13 mill/uL (4.70-6.10)
[2023-12-23 04:30] LABS: Anion Gap 12 mmol/L (10-20); BUN (Urea Nitrogen) 33 mg/dL (8.4-25.7); Calc. Creatinine Clearance 161 mL/min (70-130); Calcium 7.4 mg/dL (7.8-10.44); Carbon Dioxide 29 mmol/L (22-29); Chloride 100 mmol/L (98-107); Estimated GFR 117; Glucose 238 mg/dL (70-105); Potassium 4.3 mmol/L (3.5-5.1); Sodium 137 mmol/L (136-145)
[2023-12-23] MEDS ORDERED: Lactated Ringer's 1,000 ML IV SCH (20:15)
[2023-12-23] MEDS ORDERED: Lactated Ringer's 500 ML IV SCH (20:15)
[2023-12-23] MEDS: Furosemide 40 MG (4 mL) VIAL SLOW IVP SCH (20:47)
[2023-12-24 05:23] LABS: Hematocrit 25.8 % (42.0-52.0); Hemoglobin 8.2 g/dL (14.0-18.0); Mean Corpuscular HGB CONC 31.8 g/dL (32.0-36.0); Mean Corpuscular Hemoglobin 28.7 pg (27.0-31.0); Mean Corpuscular Volume 90.2 fL (78.0-98.0); Mean Platelet Volume 10.6 fL (7.4-10.4); Platelet Count 31 10x3/uL (130-400); RBC Distribution Width 18.1 % (11.5-14.5); Red Blood Cell (RBC) Count 2.86 mill/uL (4.70-6.10)
[2023-12-24 05:32] LABS: Anion Gap 10 mmol/L (10-20); BUN (Urea Nitrogen) 26 mg/dL (8.4-25.7); Calc. Creatinine Clearance 187 mL/min (70-130); Calcium 7.3 mg/dL (7.8-10.44); Carbon Dioxide 33 mmol/L (22-29); Chloride 95 mmol/L (98-107); Estimated GFR 122; Glucose 204 mg/dL (70-105); Potassium 3.5 mmol/L (3.5-5.1); Sodium 134 mmol/L (136-145)
[2023-12-24 05:59] LABS: Anisocytosis SLIGHT = 6-15 cells HPF (0-5); Band 9 % (5-11); Lymphocytes 7 % (21-51); Metamyelocyte 1 % (0-0); Monocytes 1 % (0-10); Myelocyte 1 % (0-0); Neutrophil 80 % (42-75); Platelet Adequacy Comment Platelets Decreased; Polychromasia SLIGHT = 2-3 cells HPF (0-2); Smudge Cells 13.5 %
[2023-12-24] MEDS: Potassium Chloride 20 MEQ in Premix 1 BAG IVPB SCH (07:50)
[2023-12-25 03:23] LABS: #Basophils Less than 0.03 10x3/uL (0.0-0.2); #Eosinphils Less than 0.03 10x3/uL (0.0-0.7); %Basophils 0.2 % (0.0-1.0); %Eosinophils 0.4 % (0.0-10.0); Hematocrit 26.3 % (42.0-52.0); Hemoglobin 8.4 g/dL (14.0-18.0); Mean Corpuscular HGB CONC 31.9 g/dL (32.0-36.0); Mean Corpuscular Hemoglobin 28.9 pg (27.0-31.0); Mean Corpuscular Volume 90.4 fL (78.0-98.0); Mean Platelet Volume 11.2 fL (7.4-10.4); Platelet Count 41 10x3/uL (130-400); RBC Distribution Width 18.3 % (11.5-14.5); Red Blood Cell (RBC) Count 2.91 mill/uL (4.70-6.10)
[2023-12-25 03:43] LABS: Anisocytosis SLIGHT = 6-15 cells HPF (0-5); Band 4 % (5-11); Hypochromia SLIGHT = 6-15 cells HPF (0-5); Lymphocytes 8 % (21-51); Monocytes 3 % (0-10); Neutrophil 85 % (42-75); Platelet Adequacy Comment Platelets Decreased; Polychromasia SLIGHT = 2-3 cells HPF (0-2); Smudge Cells 18.2 %
[2023-12-25 04:30] LABS: Anion Gap 11 mmol/L (10-20); BUN (Urea Nitrogen) 25 mg/dL (8.4-25.7); Calc. Creatinine Clearance 214 mL/min (70-130); Calcium 7.4 mg/dL (7.8-10.44); Carbon Dioxide 34 mmol/L (22-29); Chloride 94 mmol/L (98-107); Estimated GFR 126; Glucose 110 mg/dL (70-105); Sodium 135 mmol/L (136-145)
[2023-12-25] MEDS: Hydrocortisone Sod Succ/PF 100 mg/2 ml Vial IVP SCH (07:38)
[2023-12-25] MEDS: Dextrose 50% Abboject 50 ML SYRINGE SLOW IVP PRN (22:07)
[2023-12-26] MEDS: Dextrose 5 % And 0.9 % NaCl 1,000 ML IV SCH (00:20)
[2023-12-26 05:11] LABS: #Basophils Less than 0.03 10x3/uL (0.0-0.2); %Eosinophils 0.8 % (0.0-10.0); %Lymphocytes 26.4 % (21.0-51.0); %Neutrophils 65.2 % (42.0-75.0); Hematocrit 27.9 % (42.0-52.0); Hemoglobin 8.7 g/dL (14.0-18.0); Mean Corpuscular HGB CONC 31.2 g/dL (32.0-36.0); Mean Corpuscular Hemoglobin 28.4 pg (27.0-31.0); Mean Corpuscular Volume 91.2 fL (78.0-98.0); Mean Platelet Volume 11.3 fL (7.4-10.4); Platelet Count 55 10x3/uL (130-400); RBC Distribution Width 18.3 % (11.5-14.5); Red Blood Cell (RBC) Count 3.06 mill/uL (4.70-6.10)
[2023-12-26 05:13] LABS: Anion Gap 10 mmol/L (10-20); BUN (Urea Nitrogen) 23 mg/dL (8.4-25.7); Calc. Creatinine Clearance 213 mL/min (70-130); Calcium 7.4 mg/dL (7.8-10.44); Carbon Dioxide 35 mmol/L (22-29); Chloride 94 mmol/L (98-107); Estimated GFR 126; Glucose 78 mg/dL (70-105); Potassium 3.7 mmol/L (3.5-5.1); Sodium 135 mmol/L (136-145)
[2023-12-27] MEDS ORDERED: Sodium Bicarbonate Tab 325 MG TAB PER TUBE PRN (07:30)
[2023-12-27 09:07] LABS: Anion Gap 7 mmol/L (10-20); BUN (Urea Nitrogen) 16 mg/dL (8.4-25.7); Calc. Creatinine Clearance 227 mL/min (70-130); Carbon Dioxide 37 mmol/L (22-29); Chloride 91 mmol/L (98-107); Estimated GFR 128; Glucose 119 mg/dL (70-105); Potassium 3.4 mmol/L (3.5-5.1); Sodium 132 mmol/L (136-145)
[2023-12-27] MEDS: Potassium Chloride 20 MEQ in Premix 1 BAG IVPB SCH (09:54)
[2023-12-27 09:59] LABS: #Basophils Less than 0.03 10x3/uL (0.0-0.2); %Basophils 0.2 % (0.0-1.0); %Eosinophils 0.6 % (0.0-10.0); %Lymphocytes 14.6 % (21.0-51.0); %Monocytes 6.8 % (0.0-10.0); %Neutrophils 76.2 % (42.0-75.0); Hemoglobin 8.5 g/dL (14.0-18.0); Mean Corpuscular HGB CONC 31.5 g/dL (32.0-36.0); Mean Corpuscular Hemoglobin 28.5 pg (27.0-31.0); Mean Corpuscular Volume 90.6 fL (78.0-98.0); Mean Platelet Volume 9.8 fL (7.4-10.4); Platelet Count 61 10x3/uL (130-400); RBC Distribution Width 18.6 % (11.5-14.5); Red Blood Cell (RBC) Count 2.98 mill/uL (4.70-6.10)
[2023-12-27] MEDS ORDERED: Electrolyte Replacement Protocol 1 EACH FS SCH (11:15)
[2023-12-27] MEDS ORDERED: Desmopressin Acetate 4 mcg/ml AMPUL IVP SCH (11:15)
[2023-12-27 18:10] LABS: Potassium 3.7 mmol/L (3.5-5.1)
[2023-12-28 05:05] LABS: #Basophils Less than 0.03 10x3/uL (0.0-0.2); %Eosinophils 0.6 % (0.0-10.0); %Monocytes 7.6 % (0.0-10.0); %Neutrophils 69.7 % (42.0-75.0); Hematocrit 24.3 % (42.0-52.0); Hemoglobin 7.8 g/dL (14.0-18.0); Mean Corpuscular HGB CONC 32.1 g/dL (32.0-36.0); Mean Corpuscular Hemoglobin 28.8 pg (27.0-31.0); Mean Corpuscular Volume 89.7 fL (78.0-98.0); Platelet Count 78 10x3/uL (130-400); RBC Distribution Width 17.9 % (11.5-14.5); Red Blood Cell (RBC) Count 2.71 mill/uL (4.70-6.10)
[2023-12-28 05:17] LABS: Anion Gap 6 mmol/L (10-20); BUN (Urea Nitrogen) 9 mg/dL (8.4-25.7); Calc. Creatinine Clearance 238 mL/min (70-130); Carbon Dioxide 37 mmol/L (22-29); Chloride 86 mmol/L (98-107); Estimated GFR 130; Glucose 93 mg/dL (70-105); Potassium 3.6 mmol/L (3.5-5.1); Sodium 125 mmol/L (136-145)
[2023-12-28] MEDS ORDERED: Dexmedetomidine In 0.9 % NaCl 100 ML IVPB SCH (10:00)
[2023-12-29 05:02] LABS: #Basophils Less than 0.03 10x3/uL (0.0-0.2); #Eosinphils Less than 0.03 10x3/uL (0.0-0.7); %Eosinophils 0.5 % (0.0-10.0); %Lymphocytes 15.9 % (21.0-51.0); %Monocytes 7.6 % (0.0-10.0); %Neutrophils 75.3 % (42.0-75.0); Hematocrit 23.3 % (42.0-52.0); Hemoglobin 7.6 g/dL (14.0-18.0); Mean Corpuscular HGB CONC 32.6 g/dL (32.0-36.0); Mean Corpuscular Hemoglobin 28.9 pg (27.0-31.0); Mean Corpuscular Volume 88.6 fL (78.0-98.0); Mean Platelet Volume 10.3 fL (7.4-10.4); Platelet Count 97 10x3/uL (130-400); RBC Distribution Width 17.4 % (11.5-14.5); Red Blood Cell (RBC) Count 2.63 mill/uL (4.70-6.10)
[2023-12-29 05:12] LABS: Anion Gap 8 mmol/L (10-20); BUN (Urea Nitrogen) 10 mg/dL (8.4-25.7); Calc. Creatinine Clearance 208 mL/min (70-130); Calcium 7.4 mg/dL (7.8-10.44); Carbon Dioxide 38 mmol/L (22-29); Chloride 87 mmol/L (98-107); Estimated GFR 127; Glucose 112 mg/dL (70-105); Potassium 3.7 mmol/L (3.5-5.1); Sodium 129 mmol/L (136-145)
[2023-12-29] MEDS ORDERED: Desmopressin Acetate 4 mcg/ml AMPUL IVP SCH (09:00)
[2023-12-29] MEDS: Desmopressin Acetate 4 mcg/ml AMPUL IVP SCH (09:44)
[2023-12-30 03:34] LABS: #Basophils Less than 0.03 10x3/uL (0.0-0.2); #Eosinphils Less than 0.03 10x3/uL (0.0-0.7); %Basophils 0.2 % (0.0-1.0); %Eosinophils 0.4 % (0.0-10.0); %Lymphocytes 17.9 % (21.0-51.0); %Neutrophils 71.9 % (42.0-75.0); Hematocrit 22.4 % (42.0-52.0); Hemoglobin 7.1 g/dL (14.0-18.0); Mean Corpuscular HGB CONC 31.7 g/dL (32.0-36.0); Mean Corpuscular Hemoglobin 28.7 pg (27.0-31.0); Mean Corpuscular Volume 90.7 fL (78.0-98.0); Mean Platelet Volume 9.2 fL (7.4-10.4); Platelet Count 126 10x3/uL (130-400); RBC Distribution Width 17.3 % (11.5-14.5); Red Blood Cell (RBC) Count 2.47 mill/uL (4.70-6.10)
[2023-12-30 04:23] LABS: Hypochromia SLIGHT = 6-15 cells HPF (0-5); Platelet Adequacy Comment Platelets Decreased; Poikilocytosis SLIGHT = 6-15 cells HPF (0-5); Polychromasia SLIGHT = 2-3 cells HPF (0-2)
[2023-12-30 04:28] LABS: Anion Gap 7 mmol/L (10-20); BUN (Urea Nitrogen) 12 mg/dL (8.4-25.7); Calc. Creatinine Clearance 190 mL/min (70-130); Calcium 7.4 mg/dL (7.8-10.44); Carbon Dioxide 42 mmol/L (22-29); Chloride 87 mmol/L (98-107); Estimated GFR 123; Glucose 98 mg/dL (70-105); Potassium 3.4 mmol/L (3.5-5.1); Sodium 133 mmol/L (136-145)
[2023-12-30] MEDS: Potassium Bicarbonate/Cit Ac 20 MEQ TAB PER TUBE SCH (11:12)
[2023-12-31 04:32] LABS: #Basophils Less than 0.03 10x3/uL (0.0-0.2); #Eosinphils Less than 0.03 10x3/uL (0.0-0.7); %Basophils 0.3 % (0.0-1.0); %Eosinophils 0.5 % (0.0-10.0); %Lymphocytes 19.7 % (21.0-51.0); Hematocrit 21.2 % (42.0-52.0); Hemoglobin 6.6 g/dL (14.0-18.0); Mean Corpuscular HGB CONC 31.1 g/dL (32.0-36.0); Mean Corpuscular Hemoglobin 27.6 pg (27.0-31.0); Mean Corpuscular Volume 88.7 fL (78.0-98.0); Mean Platelet Volume 8.8 fL (7.4-10.4); Platelet Count 138 10x3/uL (130-400); RBC Distribution Width 17.3 % (11.5-14.5); Red Blood Cell (RBC) Count 2.39 mill/uL (4.70-6.10)
[2023-12-31 04:46] LABS: Anion Gap 9 mmol/L (10-20); BUN (Urea Nitrogen) 13 mg/dL (8.4-25.7); Calc. Creatinine Clearance 198 mL/min (70-130); Calcium 7.7 mg/dL (7.8-10.44); Carbon Dioxide 43 mmol/L (22-29); Chloride 85 mmol/L (98-107); Estimated GFR 125; Glucose 109 mg/dL (70-105); Potassium 4.4 mmol/L (3.5-5.1); Sodium 133 mmol/L (136-145)
[2024-01-02 05:02] LABS: #Basophils Less than 0.03 10x3/uL (0.0-0.2); %Basophils 0.3 % (0.0-1.0); %Eosinophils 0.8 % (0.0-10.0); %Lymphocytes 24.9 % (21.0-51.0); %Monocytes 7.5 % (0.0-10.0); %Neutrophils 66.2 % (42.0-75.0); Hematocrit 25.2 % (42.0-52.0); Hemoglobin 8.1 g/dL (14.0-18.0); Mean Corpuscular HGB CONC 32.1 g/dL (32.0-36.0); Mean Corpuscular Hemoglobin 28.2 pg (27.0-31.0); Mean Corpuscular Volume 87.8 fL (78.0-98.0); Mean Platelet Volume 8.9 fL (7.4-10.4); Platelet Count 162 10x3/uL (130-400); RBC Distribution Width 17.2 % (11.5-14.5); Red Blood Cell (RBC) Count 2.87 mill/uL (4.70-6.10)
[2024-01-02 10:03] LABS: #Basophils Less than 0.03 10x3/uL (0.0-0.2); #Eosinphils Less than 0.03 10x3/uL (0.0-0.7); %Basophils 0.3 % (0.0-1.0); %Eosinophils 0.6 % (0.0-10.0); %Lymphocytes 24.2 % (21.0-51.0); %Monocytes 7.7 % (0.0-10.0); %Neutrophils 66.9 % (42.0-75.0); Hematocrit 25.2 % (42.0-52.0); Hemoglobin 8.1 g/dL (14.0-18.0); Mean Corpuscular HGB CONC 32.1 g/dL (32.0-36.0); Mean Corpuscular Hemoglobin 27.6 pg (27.0-31.0); Mean Platelet Volume 9.2 fL (7.4-10.4); Platelet Count 130 10x3/uL (130-400); Red Blood Cell (RBC) Count 2.93 mill/uL (4.70-6.10)
[2024-01-02 10:22] LABS: Anion Gap 9 mmol/L (10-20); BUN (Urea Nitrogen) 19 mg/dL (8.4-25.7); Calc. Creatinine Clearance 183 mL/min (70-130); Calcium 7.8 mg/dL (7.8-10.44); Carbon Dioxide 41 mmol/L (22-29); Chloride 88 mmol/L (98-107); Estimated GFR 123; Glucose 93 mg/dL (70-105); Potassium 3.9 mmol/L (3.5-5.1); Sodium 134 mmol/L (136-145)
[2024-01-03 04:18] LABS: #Basophils Less than 0.03 10x3/uL (0.0-0.2); #Eosinphils Less than 0.03 10x3/uL (0.0-0.7); %Basophils 0.3 % (0.0-1.0); %Eosinophils 0.6 % (0.0-10.0); %Monocytes 8.1 % (0.0-10.0); Hematocrit 23.7 % (42.0-52.0); Hemoglobin 7.5 g/dL (14.0-18.0); Mean Corpuscular HGB CONC 31.6 g/dL (32.0-36.0); Mean Corpuscular Hemoglobin 27.7 pg (27.0-31.0); Mean Corpuscular Volume 87.5 fL (78.0-98.0); Mean Platelet Volume 8.8 fL (7.4-10.4); Platelet Count 121 10x3/uL (130-400); RBC Distribution Width 17.2 % (11.5-14.5); Red Blood Cell (RBC) Count 2.71 mill/uL (4.70-6.10)
[2024-01-03 04:44] LABS: Anion Gap 9 mmol/L (10-20); BUN (Urea Nitrogen) 20 mg/dL (8.4-25.7); Calc. Creatinine Clearance 169 mL/min (70-130); Calcium 7.8 mg/dL (7.8-10.44); Carbon Dioxide 42 mmol/L (22-29); Chloride 87 mmol/L (98-107); Estimated GFR 121; Glucose 100 mg/dL (70-105); Potassium 3.7 mmol/L (3.5-5.1); Sodium 134 mmol/L (136-145)
[2024-01-06] MEDS: Lansoprazole 30 MG/10 ML UDCUP PER TUBE SCH (08:33)
[2024-01-06 09:34] LABS: Anion Gap 9 mmol/L (10-20); BUN (Urea Nitrogen) 18 mg/dL (8.4-25.7); Calc. Creatinine Clearance 170 mL/min (70-130); Calcium 8.1 mg/dL (7.8-10.44); Carbon Dioxide 41 mmol/L (22-29); Chloride 87 mmol/L (98-107); Estimated GFR 122; Glucose 103 mg/dL (70-105); Potassium 3.8 mmol/L (3.5-5.1); Sodium 133 mmol/L (136-145)
[2024-01-07 04:55] LABS: Anion Gap 10 mmol/L (10-20); BUN (Urea Nitrogen) 16 mg/dL (8.4-25.7); Calc. Creatinine Clearance 158 mL/min (70-130); Carbon Dioxide 41 mmol/L (22-29); Chloride 88 mmol/L (98-107); Estimated GFR 119; Glucose 100 mg/dL (70-105); Potassium 3.7 mmol/L (3.5-5.1); Sodium 135 mmol/L (136-145)
[2024-01-08 07:24] LABS: Anion Gap 11 mmol/L (10-20); BUN (Urea Nitrogen) 22 mg/dL (8.4-25.7); Calc. Creatinine Clearance 160 mL/min (70-130); Calcium 8.8 mg/dL (7.8-10.44); Carbon Dioxide 41 mmol/L (22-29); Chloride 91 mmol/L (98-107); Estimated GFR 120; Glucose 107 mg/dL (70-105); Potassium 3.7 mmol/L (3.5-5.1); Sodium 139 mmol/L (136-145)
[2024-01-09 06:47] LABS: Anion Gap 8 mmol/L (10-20); BUN (Urea Nitrogen) 21 mg/dL (8.4-25.7); Calc. Creatinine Clearance 150 mL/min (70-130); Calcium 8.4 mg/dL (7.8-10.44); Carbon Dioxide 45 mmol/L (22-29); Chloride 90 mmol/L (98-107); Estimated GFR 117; Glucose 94 mg/dL (70-105); Potassium 3.7 mmol/L (3.5-5.1); Sodium 139 mmol/L (136-145)
[2024-01-10 07:09] LABS: Anion Gap 10 mmol/L (10-20); BUN (Urea Nitrogen) 26 mg/dL (8.4-25.7); Calc. Creatinine Clearance 131 mL/min (70-130); Calcium 8.5 mg/dL (7.8-10.44); Carbon Dioxide 43 mmol/L (22-29); Chloride 93 mmol/L (98-107); Estimated GFR 114; Glucose 92 mg/dL (70-105); Potassium 3.9 mmol/L (3.5-5.1); Sodium 142 mmol/L (136-145)
[2024-01-11 07:10] LABS: Anion Gap 11 mmol/L (10-20); BUN (Urea Nitrogen) 30 mg/dL (8.4-25.7); Calc. Creatinine Clearance 135 mL/min (70-130); Calcium 8.5 mg/dL (7.8-10.44); Carbon Dioxide 47 mmol/L (22-29); Chloride 92 mmol/L (98-107); Estimated GFR 116; Glucose 95 mg/dL (70-105); Potassium 3.8 mmol/L (3.5-5.1); Sodium 146 mmol/L (136-145)
[2024-01-12 05:54] LABS: #Basophils Less than 0.03 10x3/uL (0.0-0.2); %Basophils 0.4 % (0.0-1.0); %Eosinophils 3.6 % (0.0-10.0); %Lymphocytes 30.6 % (21.0-51.0); %Monocytes 12.1 % (0.0-10.0); Hematocrit 21.3 % (42.0-52.0); Hemoglobin 6.3 g/dL (14.0-18.0); Mean Corpuscular HGB CONC 29.6 g/dL (32.0-36.0); Mean Corpuscular Hemoglobin 27.6 pg (27.0-31.0); Mean Corpuscular Volume 93.4 fL (78.0-98.0); Mean Platelet Volume 9.3 fL (7.4-10.4); Platelet Count 171 10x3/uL (130-400); RBC Distribution Width 17.9 % (11.5-14.5); Red Blood Cell (RBC) Count 2.28 mill/uL (4.70-6.10)
[2024-01-12 07:17] LABS: Anion Gap 8 mmol/L (10-20); BUN (Urea Nitrogen) 20 mg/dL (8.4-25.7); Calc. Creatinine Clearance 126 mL/min (70-130); Calcium 8.6 mg/dL (7.8-10.44); Carbon Dioxide 45 mmol/L (22-29); Chloride 98 mmol/L (98-107); Estimated GFR 114; Glucose 125 mg/dL (70-105); Potassium 3.4 mmol/L (3.5-5.1); Sodium 148 mmol/L (136-145)
[2024-01-12] MEDS: Potassium Chloride 20 MEQ TAB PO SCH (09:26)
[2024-01-12] MEDS: Scopolamine 1 mg/72 hour Patch TD SCH (09:58)
[2024-01-12 15:32] LABS: #Basophils Less than 0.03 10x3/uL (0.0-0.2); %Eosinophils 3.1 % (0.0-10.0); %Monocytes 12.7 % (0.0-10.0); %Neutrophils 52.9 % (42.0-75.0); Hematocrit 22.8 % (42.0-52.0); Hemoglobin 6.8 g/dL (14.0-18.0); Mean Corpuscular HGB CONC 29.8 g/dL (32.0-36.0); Mean Corpuscular Hemoglobin 28.7 pg (27.0-31.0); Mean Corpuscular Volume 96.2 fL (78.0-98.0); Mean Platelet Volume 8.9 fL (7.4-10.4); Platelet Count 173 10x3/uL (130-400); Red Blood Cell (RBC) Count 2.37 mill/uL (4.70-6.10)
[2024-01-15 09:20] LABS: #Basophils 0.03 10x3/uL (0.0-0.2); %Basophils 0.5 % (0.0-1.0); %Eosinophils 2.3 % (0.0-10.0); %Lymphocytes 34.7 % (21.0-51.0); %Monocytes 9.2 % (0.0-10.0); %Neutrophils 51.9 % (42.0-75.0); Hematocrit 29.9 % (42.0-52.0); Hemoglobin 9.1 g/dL (14.0-18.0); Mean Corpuscular HGB CONC 30.4 g/dL (32.0-36.0); Mean Corpuscular Hemoglobin 27.8 pg (27.0-31.0); Mean Corpuscular Volume 91.4 fL (78.0-98.0); Platelet Count 210 10x3/uL (130-400); RBC Distribution Width 17.4 % (11.5-14.5); Red Blood Cell (RBC) Count 3.27 mill/uL (4.70-6.10)
[2024-01-15 09:39] LABS: Anion Gap 12 mmol/L (10-20); BUN (Urea Nitrogen) 31 mg/dL (8.4-25.7); Calc. Creatinine Clearance 121 mL/min (70-130); Carbon Dioxide 38 mmol/L (22-29); Chloride 103 mmol/L (98-107); Estimated GFR 113; Glucose 80 mg/dL (70-105); Potassium 3.8 mmol/L (3.5-5.1); Sodium 149 mmol/L (136-145)
[2024-01-16 07:17] LABS: #Basophils 0.03 10x3/uL (0.0-0.2); %Basophils 0.5 % (0.0-1.0); %Eosinophils 2.3 % (0.0-10.0); %Lymphocytes 46.6 % (21.0-51.0); %Monocytes 9.1 % (0.0-10.0); %Neutrophils 40.2 % (42.0-75.0); Hematocrit 28.8 % (42.0-52.0); Hemoglobin 8.7 g/dL (14.0-18.0); Mean Corpuscular HGB CONC 30.2 g/dL (32.0-36.0); Mean Corpuscular Hemoglobin 27.7 pg (27.0-31.0); Mean Corpuscular Volume 91.7 fL (78.0-98.0); Mean Platelet Volume 8.3 fL (7.4-10.4); Platelet Count 210 10x3/uL (130-400); RBC Distribution Width 17.2 % (11.5-14.5); Red Blood Cell (RBC) Count 3.14 mill/uL (4.70-6.10)
[2024-01-16 07:32] LABS: Anion Gap 13 mmol/L (10-20); BUN (Urea Nitrogen) 40 mg/dL (8.4-25.7); Calc. Creatinine Clearance 119 mL/min (70-130); Calcium 8.7 mg/dL (7.8-10.44); Carbon Dioxide 35 mmol/L (22-29); Chloride 102 mmol/L (98-107); Estimated GFR 111; Glucose 97 mg/dL (70-105); Potassium 3.8 mmol/L (3.5-5.1); Sodium 146 mmol/L (136-145)
[2024-01-16] MEDS ORDERED: Desmopressin Acetate 4 mcg/ml AMPUL IVP SCH (09:30)
[2024-01-17 04:32] LABS: Anion Gap 13 mmol/L (10-20); BUN (Urea Nitrogen) 32 mg/dL (8.4-25.7); Calc. Creatinine Clearance 108 mL/min (70-130); Calcium 9.1 mg/dL (7.8-10.44); Carbon Dioxide 40 mmol/L (22-29); Chloride 99 mmol/L (98-107); Estimated GFR 108; Glucose 92 mg/dL (70-105); Sodium 148 mmol/L (136-145)
[2024-01-17] MEDS: Desmopressin Acetate 4 mcg/ml AMPUL IVP SCH (09:33)
[2024-01-18 04:36] LABS: Anion Gap 9 mmol/L (10-20); BUN (Urea Nitrogen) 29 mg/dL (8.4-25.7); Calc. Creatinine Clearance 108 mL/min (70-130); Calcium 8.7 mg/dL (7.8-10.44); Carbon Dioxide 40 mmol/L (22-29); Chloride 99 mmol/L (98-107); Estimated GFR 108; Glucose 94 mg/dL (70-105); Potassium 3.4 mmol/L (3.5-5.1); Sodium 145 mmol/L (136-145)
[2024-01-18] MEDS: Potassium Chloride 20 MEQ in Premix 1 BAG IVPB SCH (11:24)
[2024-01-19 04:44] LABS: #Basophils 0.04 10x3/uL (0.0-0.2); %Basophils 0.6 % (0.0-1.0); %Eosinophils 2.3 % (0.0-10.0); %Monocytes 10.3 % (0.0-10.0); %Neutrophils 49.2 % (42.0-75.0); Hemoglobin 8.9 g/dL (14.0-18.0); Mean Corpuscular HGB CONC 29.7 g/dL (32.0-36.0); Mean Corpuscular Hemoglobin 27.4 pg (27.0-31.0); Mean Corpuscular Volume 92.3 fL (78.0-98.0); Platelet Count 266 10x3/uL (130-400); RBC Distribution Width 17.2 % (11.5-14.5); Red Blood Cell (RBC) Count 3.25 mill/uL (4.70-6.10)
[2024-01-19 04:58] LABS: Anion Gap 14 mmol/L (10-20); BUN (Urea Nitrogen) 26 mg/dL (8.4-25.7); Calc. Creatinine Clearance 109 mL/min (70-130); Calcium 9.2 mg/dL (7.8-10.44); Carbon Dioxide 35 mmol/L (22-29); Chloride 100 mmol/L (98-107); Estimated GFR 109; Glucose 96 mg/dL (70-105); Potassium 3.7 mmol/L (3.5-5.1); Sodium 145 mmol/L (136-145)
[2024-01-20 05:20] LABS: #Basophils 0.03 10x3/uL (0.0-0.2); %Basophils 0.4 % (0.0-1.0); %Eosinophils 2.4 % (0.0-10.0); %Lymphocytes 35.5 % (21.0-51.0); %Monocytes 11.4 % (0.0-10.0); %Neutrophils 49.9 % (42.0-75.0); Hemoglobin 9.1 g/dL (14.0-18.0); Mean Corpuscular HGB CONC 29.4 g/dL (32.0-36.0); Mean Corpuscular Hemoglobin 27.4 pg (27.0-31.0); Mean Corpuscular Volume 93.4 fL (78.0-98.0); Mean Platelet Volume 8.7 fL (7.4-10.4); Platelet Count 320 10x3/uL (130-400); Red Blood Cell (RBC) Count 3.32 mill/uL (4.70-6.10)
[2024-01-20 05:34] LABS: Anion Gap 15 mmol/L (10-20); BUN (Urea Nitrogen) 34 mg/dL (8.4-25.7); Calc. Creatinine Clearance 99 mL/min (70-130); Calcium 9.5 mg/dL (7.8-10.44); Carbon Dioxide 32 mmol/L (22-29); Chloride 102 mmol/L (98-107); Estimated GFR 105; Glucose 100 mg/dL (70-105); Potassium 3.7 mmol/L (3.5-5.1); Sodium 145 mmol/L (136-145)
[2024-01-20] MEDS: Arformoterol 15 MCG/2 ML NEB NEB SCH (18:49)
[2024-01-20] MEDS: Budesonide 0.5 MG/2 ML NEB INH SCH (18:49)
[2024-01-21 06:35] LABS: #Basophils 0.03 10x3/uL (0.0-0.2); %Basophils 0.4 % (0.0-1.0); %Eosinophils 2.1 % (0.0-10.0); %Lymphocytes 33.6 % (21.0-51.0); %Monocytes 10.5 % (0.0-10.0); Hematocrit 30.5 % (42.0-52.0); Hemoglobin 9.3 g/dL (14.0-18.0); Mean Corpuscular HGB CONC 30.5 g/dL (32.0-36.0); Mean Corpuscular Hemoglobin 28.4 pg (27.0-31.0); Mean Platelet Volume 8.6 fL (7.4-10.4); Platelet Count 351 10x3/uL (130-400); RBC Distribution Width 16.9 % (11.5-14.5); Red Blood Cell (RBC) Count 3.28 mill/uL (4.70-6.10)
[2024-01-21 07:16] LABS: Anion Gap 10 mmol/L (10-20); BUN (Urea Nitrogen) 28 mg/dL (8.4-25.7); Calc. Creatinine Clearance 105 mL/min (70-130); Calcium 9.2 mg/dL (7.8-10.44); Carbon Dioxide 37 mmol/L (22-29); Chloride 102 mmol/L (98-107); Estimated GFR 107; Glucose 101 mg/dL (70-105); Potassium 3.7 mmol/L (3.5-5.1); Sodium 145 mmol/L (136-145)
[2024-01-22 04:57] LABS: #Basophils 0.03 10x3/uL (0.0-0.2); %Basophils 0.4 % (0.0-1.0); %Eosinophils 2.8 % (0.0-10.0); %Lymphocytes 39.6 % (21.0-51.0); %Neutrophils 46.6 % (42.0-75.0); Hematocrit 31.9 % (42.0-52.0); Hemoglobin 9.2 g/dL (14.0-18.0); Mean Corpuscular HGB CONC 28.8 g/dL (32.0-36.0); Mean Corpuscular Hemoglobin 27.7 pg (27.0-31.0); Mean Corpuscular Volume 96.1 fL (78.0-98.0); Mean Platelet Volume 8.7 fL (7.4-10.4); Platelet Count 359 10x3/uL (130-400); RBC Distribution Width 17.1 % (11.5-14.5); Red Blood Cell (RBC) Count 3.32 mill/uL (4.70-6.10)
[2024-01-22 05:25] LABS: Anisocytosis SLIGHT = 6-15 cells HPF (0-5); Hypochromia SLIGHT = 6-15 cells HPF (0-5); Platelet Adequacy Comment Platelets Normal; Polychromasia SLIGHT = 2-3 cells HPF (0-2)
[2024-01-22 05:28] LABS: Anion Gap 16 mmol/L (10-20); BUN (Urea Nitrogen) 39 mg/dL (8.4-25.7); Calc. Creatinine Clearance 98 mL/min (70-130); Calcium 9.5 mg/dL (7.8-10.44); Carbon Dioxide 30 mmol/L (22-29); Chloride 104 mmol/L (98-107); Estimated GFR 105; Glucose 82 mg/dL (70-105); Sodium 146 mmol/L (136-145)
[2024-01-23 06:07] LABS: #Basophils 0.03 10x3/uL (0.0-0.2); %Basophils 0.5 % (0.0-1.0); %Eosinophils 3.1 % (0.0-10.0); %Lymphocytes 40.5 % (21.0-51.0); %Monocytes 12.7 % (0.0-10.0); %Neutrophils 42.9 % (42.0-75.0); Hematocrit 32.3 % (42.0-52.0); Hemoglobin 9.5 g/dL (14.0-18.0); Mean Corpuscular HGB CONC 29.4 g/dL (32.0-36.0); Mean Corpuscular Hemoglobin 27.4 pg (27.0-31.0); Mean Corpuscular Volume 93.1 fL (78.0-98.0); Mean Platelet Volume 8.4 fL (7.4-10.4); Platelet Count 354 10x3/uL (130-400); Red Blood Cell (RBC) Count 3.47 mill/uL (4.70-6.10)
[2024-01-23 06:31] LABS: Anion Gap 15 mmol/L (10-20); BUN (Urea Nitrogen) 43 mg/dL (8.4-25.7); Calc. Creatinine Clearance 99 mL/min (70-130); Calcium 9.5 mg/dL (7.8-10.44); Carbon Dioxide 35 mmol/L (22-29); Chloride 101 mmol/L (98-107); Estimated GFR 106; Glucose 96 mg/dL (70-105); Potassium 3.6 mmol/L (3.5-5.1); Sodium 147 mmol/L (136-145)
[2024-01-24 04:55] LABS: #Basophils 0.03 10x3/uL (0.0-0.2); %Basophils 0.4 % (0.0-1.0); %Eosinophils 2.7 % (0.0-10.0); %Lymphocytes 33.9 % (21.0-51.0); %Neutrophils 49.7 % (42.0-75.0); Hematocrit 30.7 % (42.0-52.0); Hemoglobin 8.9 g/dL (14.0-18.0); Mean Corpuscular Hemoglobin 27.2 pg (27.0-31.0); Mean Corpuscular Volume 93.9 fL (78.0-98.0); Mean Platelet Volume 8.7 fL (7.4-10.4); Platelet Count 335 10x3/uL (130-400); RBC Distribution Width 16.5 % (11.5-14.5); Red Blood Cell (RBC) Count 3.27 mill/uL (4.70-6.10)
[2024-01-24 05:40] LABS: Anion Gap 12 mmol/L (10-20); BUN (Urea Nitrogen) 49 mg/dL (8.4-25.7); Calc. Creatinine Clearance 100 mL/min (70-130); Calcium 9.4 mg/dL (7.8-10.44); Carbon Dioxide 38 mmol/L (22-29); Chloride 103 mmol/L (98-107); Estimated GFR 106; Glucose 114 mg/dL (70-105); Potassium 3.6 mmol/L (3.5-5.1); Sodium 149 mmol/L (136-145)
[2024-01-24] MEDS: QUEtiapine 25 MG TAB PO SCH ×2 (11:24→20:52)
[2024-01-25 06:13] LABS: #Basophils 0.03 10x3/uL (0.0-0.2); %Basophils 0.4 % (0.0-1.0); %Eosinophils 2.6 % (0.0-10.0); %Lymphocytes 28.7 % (21.0-51.0); %Monocytes 13.4 % (0.0-10.0); %Neutrophils 54.6 % (42.0-75.0); Hemoglobin 9.8 g/dL (14.0-18.0); Mean Corpuscular HGB CONC 28.8 g/dL (32.0-36.0); Mean Corpuscular Hemoglobin 27.7 pg (27.0-31.0); Mean Platelet Volume 8.7 fL (7.4-10.4); Platelet Count 315 10x3/uL (130-400); RBC Distribution Width 16.9 % (11.5-14.5); Red Blood Cell (RBC) Count 3.54 mill/uL (4.70-6.10)
[2024-01-25 06:38] LABS: Anion Gap 15 mmol/L (10-20); BUN (Urea Nitrogen) 34 mg/dL (8.4-25.7); Calc. Creatinine Clearance 103 mL/min (70-130); Calcium 10.2 mg/dL (7.8-10.44); Carbon Dioxide 40 mmol/L (22-29); Chloride 102 mmol/L (98-107); Estimated GFR 107; Glucose 106 mg/dL (70-105); Potassium 3.7 mmol/L (3.5-5.1); Sodium 153 mmol/L (136-145)
[2024-01-25 13:58] LABS: Anion Gap 11 mmol/L (10-20); BUN (Urea Nitrogen) 35 mg/dL (8.4-25.7); Calc. Creatinine Clearance 97 mL/min (70-130); Calcium 9.7 mg/dL (7.8-10.44); Carbon Dioxide 42 mmol/L (22-29); Chloride 101 mmol/L (98-107); Estimated GFR 105; Glucose 138 mg/dL (70-105); Potassium 3.4 mmol/L (3.5-5.1); Sodium 151 mmol/L (136-145)
[2024-01-25] MEDS: QUEtiapine 25 MG TAB PO SCH (21:09)
[2024-01-26] MEDS: Potassium Bicarbonate/Cit Ac 20 MEQ TAB PER TUBE SCH ×2 (01:19→09:56)
[2024-01-26 05:49] LABS: #Basophils 0.04 10x3/uL (0.0-0.2); %Basophils 0.5 % (0.0-1.0); %Eosinophils 2.6 % (0.0-10.0); %Monocytes 10.4 % (0.0-10.0); %Neutrophils 46.1 % (42.0-75.0); Hematocrit 32.2 % (42.0-52.0); Hemoglobin 9.5 g/dL (14.0-18.0); Mean Corpuscular HGB CONC 29.5 g/dL (32.0-36.0); Mean Corpuscular Hemoglobin 27.5 pg (27.0-31.0); Mean Corpuscular Volume 93.3 fL (78.0-98.0); Mean Platelet Volume 9.3 fL (7.4-10.4); Platelet Count 349 10x3/uL (130-400); RBC Distribution Width 17.4 % (11.5-14.5); Red Blood Cell (RBC) Count 3.45 mill/uL (4.70-6.10)
[2024-01-26 06:09] LABS: Anion Gap 11 mmol/L (10-20); BUN (Urea Nitrogen) 37 mg/dL (8.4-25.7); Calc. Creatinine Clearance 89 mL/min (70-130); Calcium 9.7 mg/dL (7.8-10.44); Carbon Dioxide 44 mmol/L (22-29); Chloride 103 mmol/L (98-107); Estimated GFR 101; Glucose 131 mg/dL (70-105); Potassium 3.4 mmol/L (3.5-5.1); Sodium 155 mmol/L (136-145)
[2024-01-26] MEDS: Enoxaparin 40 MG (0.4 mL) SYRINGE SC SCH (09:56)
[2024-01-26] MEDS: Dextrose 5% in Water 1,000 ML IV SCH (09:57)
[2024-01-26] MEDS: Desmopressin Acetate 4 mcg/ml AMPUL IVP SCH (10:04)
[2024-01-26] MEDS: QUEtiapine 25 MG TAB PO SCH (11:32)
[2024-01-26 14:15] LABS: Anion Gap 12 mmol/L (10-20); BUN (Urea Nitrogen) 36 mg/dL (8.4-25.7); Calc. Creatinine Clearance 95 mL/min (70-130); Calcium 9.9 mg/dL (7.8-10.44); Carbon Dioxide 40 mmol/L (22-29); Chloride 101 mmol/L (98-107); Estimated GFR 105; Glucose 135 mg/dL (70-105); Potassium 3.6 mmol/L (3.5-5.1); Sodium 149 mmol/L (136-145)
[2024-01-27 04:20] LABS: #Basophils Less than 0.03 10x3/uL (0.0-0.2); %Basophils 0.2 % (0.0-1.0); %Eosinophils 3.8 % (0.0-10.0); %Lymphocytes 47.4 % (21.0-51.0); %Monocytes 10.5 % (0.0-10.0); %Neutrophils 37.8 % (42.0-75.0); Hematocrit 26.9 % (42.0-52.0); Hemoglobin 8.1 g/dL (14.0-18.0); Mean Corpuscular HGB CONC 30.1 g/dL (32.0-36.0); Mean Corpuscular Hemoglobin 27.9 pg (27.0-31.0); Mean Corpuscular Volume 92.8 fL (78.0-98.0); Mean Platelet Volume 8.3 fL (7.4-10.4); Platelet Count 252 10x3/uL (130-400); RBC Distribution Width 17.2 % (11.5-14.5)
[2024-01-27 04:55] LABS: Anion Gap 14 mmol/L (10-20); BUN (Urea Nitrogen) 41 mg/dL (8.4-25.7); Calc. Creatinine Clearance 108 mL/min (70-130); Calcium 9.5 mg/dL (7.8-10.44); Carbon Dioxide 33 mmol/L (22-29); Chloride 94 mmol/L (98-107); Estimated GFR 109; Glucose 120 mg/dL (70-105); Potassium 3.4 mmol/L (3.5-5.1); Sodium 138 mmol/L (136-145)
[2024-01-27] MEDS: Desmopressin Acetate 0.01% Nasal Solution NASAL SCH (09:44)
[2024-01-27] MEDS: Potassium Bicarbonate/Cit Ac 20 MEQ TAB PER TUBE SCH (09:50)
[2024-01-27] MEDS: QUEtiapine 25 MG TAB PO SCH (09:51)
[2024-01-28] MEDS ORDERED: Lorazepam 2 MG/ML VIAL SLOW IVP PRN (03:06)
[2024-01-28 03:53] LABS: Actual Bicarbonate (HCO3v) 35.8 mEq/L (22-28); Base Excess 9.3 mEq/L (-2.0 to +3.0); Calcium, Ionized (venous) 1.11 mmol/L (1.16-1.32); Chloride (VBG) 89 mmol/L (98-106); Hematocrit-VBG 29 % (42.0-52.0); Hemoglobin (Hb) 9.8 g/dL (13.1-17.2); Potassium (VBG) 3.85 mmol/L (3.70-5.30); Sodium 129 mmol/L (133-146); pH (venous) 7.387 (7.32-7.43)
[2024-01-28 04:04] LABS: #Basophils Less than 0.03 10x3/uL (0.0-0.2); %Basophils 0.3 % (0.0-1.0); %Eosinophils 7.3 % (0.0-10.0); %Lymphocytes 36.2 % (21.0-51.0); %Monocytes 8.5 % (0.0-10.0); %Neutrophils 47.1 % (42.0-75.0); Hematocrit 27.4 % (42.0-52.0); Hemoglobin 8.6 g/dL (14.0-18.0); Mean Corpuscular HGB CONC 31.4 g/dL (32.0-36.0); Mean Corpuscular Hemoglobin 27.7 pg (27.0-31.0); Mean Corpuscular Volume 88.4 fL (78.0-98.0); Mean Platelet Volume 8.3 fL (7.4-10.4); Platelet Count 233 10x3/uL (130-400); RBC Distribution Width 16.7 % (11.5-14.5)
[2024-01-28 04:21] LABS: Lactic Acid 1.4 mmol/L (0.5-2.2)
[2024-01-28 04:26] LABS: ALT (SGPT) 8 U/L (8-55); AST (SGOT) 20 U/L (5-34); Albumin 1.5 g/dL (3.5-5.0); Alkaline Phosphatase 156 U/L (40-110); Anion Gap 12 mmol/L (10-20); BUN (Urea Nitrogen) 36 mg/dL (8.4-25.7); Bilirubin, Total 0.3 mg/dL (0.2-1.2); CK (CPK) 17 U/L (30-200); Calc. Creatinine Clearance 124 mL/min (70-130); Calcium 8.9 mg/dL (7.8-10.44); Carbon Dioxide 33 mmol/L (22-29); Chloride 89 mmol/L (98-107); Estimated GFR 113; Globulin 6.3 g/dL (2.4-3.5); Glucose 109 mg/dL (70-105); Potassium 3.7 mmol/L (3.5-5.1); Protein, Total 7.8 g/dL (6.0-8.3); Sodium 130 mmol/L (136-145)
[2024-01-28] MEDS: levETIRAcetam 500 MG (5 mL) VIAL SLOW IVP SCH ×2 (04:26→20:27)
[2024-01-28 10:56] LABS: Bacteria/HPF 1+ HPF (None Seen); Bilirubin Negative (Negative); Blood, Urine Negative (Negative); CAUTI Indications for Culture Alt mental st,lethar; Clarity Turbid (Clear); Glucose, Urine (Dipstick) Normal (Negative); Ketone, Urine Negative (Negative); Leukocyte 500 Leu/uL (Negative); Nitrite 2+ (Negative); Protein, Urine (Dipstick) 20 mg/dL (Neg-Trace); RBC/HPF 0-3 HPF (0-3); Specific Gravity, Urine 1.015 (1.002-1.036); Squamous Epithelial None Seen HPF (0-3); Urobilinogen Normal mg/dL (Less than 2); WBC/HPF 0-3 HPF (0-3); pH, Urine 8.5 (5.0-9.0)
[2024-01-28 10:58] LABS: Urine Culture Reflex No No
[2024-01-28] MEDS: Albumin 25% 25 GM (100 mL) BOT IVPB SCH (12:32)
[2024-01-28 21:31] LABS: Anion Gap 14 mmol/L (10-20); BUN (Urea Nitrogen) 34 mg/dL (8.4-25.7); Calc. Creatinine Clearance 124 mL/min (70-130); Calcium 8.7 mg/dL (7.8-10.44); Carbon Dioxide 32 mmol/L (22-29); Chloride 90 mmol/L (98-107); Estimated GFR 112; Glucose 105 mg/dL (70-105); Potassium 3.2 mmol/L (3.5-5.1); Sodium 133 mmol/L (136-145)
[2024-01-28] MEDS: Potassium Chloride 20 MEQ in Premix 1 BAG IVPB SCH (22:17)
[2024-01-29 04:01] LABS: #Basophils Less than 0.03 10x3/uL (0.0-0.2); %Basophils 0.2 % (0.0-1.0); %Eosinophils 4.4 % (0.0-10.0); %Lymphocytes 42.3 % (21.0-51.0); %Monocytes 10.3 % (0.0-10.0); %Neutrophils 42.2 % (42.0-75.0); Hematocrit 23.4 % (42.0-52.0); Hemoglobin 7.4 g/dL (14.0-18.0); Mean Corpuscular HGB CONC 31.6 g/dL (32.0-36.0); Mean Corpuscular Hemoglobin 27.9 pg (27.0-31.0); Mean Corpuscular Volume 88.3 fL (78.0-98.0); Mean Platelet Volume 8.3 fL (7.4-10.4); Platelet Count 197 10x3/uL (130-400); RBC Distribution Width 16.8 % (11.5-14.5); Red Blood Cell (RBC) Count 2.65 mill/uL (4.70-6.10)
[2024-01-29 04:39] LABS: Anion Gap 14 mmol/L (10-20); BUN (Urea Nitrogen) 31 mg/dL (8.4-25.7); Calc. Creatinine Clearance 122 mL/min (70-130); Calcium 8.7 mg/dL (7.8-10.44); Carbon Dioxide 32 mmol/L (22-29); Chloride 92 mmol/L (98-107); Estimated GFR 111; Glucose 108 mg/dL (70-105); Potassium 3.6 mmol/L (3.5-5.1); Sodium 134 mmol/L (136-145)
[2024-01-30 06:01] LABS: #Basophils Less than 0.03 10x3/uL (0.0-0.2); %Basophils 0.3 % (0.0-1.0); %Eosinophils 4.5 % (0.0-10.0); %Lymphocytes 30.2 % (21.0-51.0); %Neutrophils 53.1 % (42.0-75.0); Hematocrit 28.3 % (42.0-52.0); Hemoglobin 8.6 g/dL (14.0-18.0); Mean Corpuscular HGB CONC 30.4 g/dL (32.0-36.0); Mean Corpuscular Hemoglobin 27.1 pg (27.0-31.0); Mean Corpuscular Volume 89.3 fL (78.0-98.0); Mean Platelet Volume 8.6 fL (7.4-10.4); Platelet Count 198 10x3/uL (130-400); RBC Distribution Width 17.3 % (11.5-14.5); Red Blood Cell (RBC) Count 3.17 mill/uL (4.70-6.10)
[2024-01-30 06:18] LABS: Anion Gap 14 mmol/L (10-20); BUN (Urea Nitrogen) 28 mg/dL (8.4-25.7); Calc. Creatinine Clearance 112 mL/min (70-130); Calcium 9.5 mg/dL (7.8-10.44); Carbon Dioxide 34 mmol/L (22-29); Chloride 100 mmol/L (98-107); Estimated GFR 109; Glucose 114 mg/dL (70-105); Potassium 3.7 mmol/L (3.5-5.1); Sodium 144 mmol/L (136-145)
[2024-01-30] MEDS: Desmopressin Acetate 4 mcg/ml AMPUL SC SCH (10:34)
[2024-01-30] MEDS: Desmopressin 4 mcg/ml MDV 10ml Vial SC SCH (13:07)
[2024-01-31 04:21] LABS: #Basophils Less than 0.03 10x3/uL (0.0-0.2); %Basophils 0.2 % (0.0-1.0); %Eosinophils 5.9 % (0.0-10.0); %Lymphocytes 38.4 % (21.0-51.0); %Monocytes 10.2 % (0.0-10.0); %Neutrophils 43.8 % (42.0-75.0); Hematocrit 28.6 % (42.0-52.0); Hemoglobin 8.5 g/dL (14.0-18.0); Mean Corpuscular HGB CONC 29.7 g/dL (32.0-36.0); Mean Corpuscular Hemoglobin 28.1 pg (27.0-31.0); Mean Corpuscular Volume 94.4 fL (78.0-98.0); Mean Platelet Volume 8.6 fL (7.4-10.4); Platelet Count 204 10x3/uL (130-400); Red Blood Cell (RBC) Count 3.03 mill/uL (4.70-6.10)
[2024-01-31 04:35] LABS: Anion Gap 13 mmol/L (10-20); BUN (Urea Nitrogen) 35 mg/dL (8.4-25.7); Calc. Creatinine Clearance 100 mL/min (70-130); Calcium 9.5 mg/dL (7.8-10.44); Carbon Dioxide 32 mmol/L (22-29); Chloride 105 mmol/L (98-107); Estimated GFR 106; Glucose 131 mg/dL (70-105); Potassium 3.4 mmol/L (3.5-5.1); Sodium 147 mmol/L (136-145)
[2024-01-31] MEDS: Potassium Chloride 20 MEQ TAB PO SCH (08:25)
[2024-01-31] MEDS: Potassium Chloride 20 MEQ TAB PER TUBE SCH (11:00)
[2024-02-01 03:48] LABS: #Basophils Less than 0.03 10x3/uL (0.0-0.2); %Basophils 0.3 % (0.0-1.0); %Eosinophils 5.5 % (0.0-10.0); %Lymphocytes 43.7 % (21.0-51.0); %Neutrophils 39.2 % (42.0-75.0); Hematocrit 29.3 % (42.0-52.0); Hemoglobin 8.4 g/dL (14.0-18.0); Mean Corpuscular HGB CONC 28.7 g/dL (32.0-36.0); Mean Corpuscular Volume 94.2 fL (78.0-98.0); Mean Platelet Volume 8.3 fL (7.4-10.4); Platelet Count 187 10x3/uL (130-400); RBC Distribution Width 18.4 % (11.5-14.5); Red Blood Cell (RBC) Count 3.11 mill/uL (4.70-6.10)
[2024-02-01 04:02] LABS: Anion Gap 9 mmol/L (10-20); BUN (Urea Nitrogen) 38 mg/dL (8.4-25.7); Calc. Creatinine Clearance 94 mL/min (70-130); Carbon Dioxide 35 mmol/L (22-29); Chloride 105 mmol/L (98-107); Estimated GFR 103; Glucose 107 mg/dL (70-105); Sodium 145 mmol/L (136-145)
[2024-02-02 07:07] LABS: #Basophils Less than 0.03 10x3/uL (0.0-0.2); %Basophils 0.3 % (0.0-1.0); %Eosinophils 7.2 % (0.0-10.0); %Lymphocytes 41.7 % (21.0-51.0); Hematocrit 30.1 % (42.0-52.0); Hemoglobin 8.8 g/dL (14.0-18.0); Mean Corpuscular HGB CONC 29.2 g/dL (32.0-36.0); Mean Corpuscular Hemoglobin 27.2 pg (27.0-31.0); Mean Corpuscular Volume 92.9 fL (78.0-98.0); Mean Platelet Volume 8.4 fL (7.4-10.4); Platelet Count 180 10x3/uL (130-400); RBC Distribution Width 18.1 % (11.5-14.5); Red Blood Cell (RBC) Count 3.24 mill/uL (4.70-6.10)
[2024-02-02 07:29] LABS: Anion Gap 13 mmol/L (10-20); BUN (Urea Nitrogen) 42 mg/dL (8.4-25.7); Calc. Creatinine Clearance 87 mL/min (70-130); Carbon Dioxide 35 mmol/L (22-29); Chloride 106 mmol/L (98-107); Estimated GFR 99; Glucose 89 mg/dL (70-105); Potassium 4.2 mmol/L (3.5-5.1); Sodium 150 mmol/L (136-145)
[2024-02-02] MEDS: Sodium Chloride 0.9% 100 ML ONE (20:49)
[2024-02-03 05:32] VITALS: BMI 26.2
[2024-02-03 06:23] LABS: #Basophils Less than 0.03 10x3/uL (0.0-0.2); %Basophils 0.3 % (0.0-1.0); %Eosinophils 6.7 % (0.0-10.0); %Lymphocytes 32.9 % (21.0-51.0); %Monocytes 7.3 % (0.0-10.0); %Neutrophils 51.9 % (42.0-75.0); Hematocrit 30.6 % (42.0-52.0); Hemoglobin 9.1 g/dL (14.0-18.0); Mean Corpuscular HGB CONC 29.7 g/dL (32.0-36.0); Mean Corpuscular Hemoglobin 27.8 pg (27.0-31.0); Mean Corpuscular Volume 93.6 fL (78.0-98.0); Mean Platelet Volume 9.5 fL (7.4-10.4); Platelet Count 179 10x3/uL (130-400); RBC Distribution Width 17.8 % (11.5-14.5); Red Blood Cell (RBC) Count 3.27 mill/uL (4.70-6.10)
[2024-02-03 06:33] LABS: Anion Gap 13 mmol/L (10-20); BUN (Urea Nitrogen) 46 mg/dL (8.4-25.7); Calc. Creatinine Clearance 88 mL/min (70-130); Calcium 10.1 mg/dL (7.8-10.44); Carbon Dioxide 34 mmol/L (22-29); Chloride 104 mmol/L (98-107); Estimated GFR 103; Glucose 95 mg/dL (70-105); Sodium 147 mmol/L (136-145)
[2024-02-04 05:04] LABS: Anion Gap 17 mmol/L (10-20); BUN (Urea Nitrogen) 50 mg/dL (8.4-25.7); Calc. Creatinine Clearance 87 mL/min (70-130); Calcium 9.7 mg/dL (7.8-10.44); Carbon Dioxide 31 mmol/L (22-29); Chloride 102 mmol/L (98-107); Estimated GFR 101; Glucose 92 mg/dL (70-105); Potassium 3.9 mmol/L (3.5-5.1); Sodium 146 mmol/L (136-145)
[2024-02-04 07:57] LABS: Hematocrit 29.9 % (42.0-52.0); Hemoglobin 8.6 g/dL (14.0-18.0); Mean Corpuscular HGB CONC 28.8 g/dL (32.0-36.0); Mean Corpuscular Volume 93.7 fL (78.0-98.0); Mean Platelet Volume 8.9 fL (7.4-10.4); Platelet Count 158 10x3/uL (130-400); RBC Distribution Width 17.7 % (11.5-14.5); Red Blood Cell (RBC) Count 3.19 mill/uL (4.70-6.10)
[2024-02-04 08:32] LABS: Anisocytosis MODERATE=16-30 cells HPF (0-5); Band 7 % (5-11); Burr Cells SLIGHT = 2-5 cells HPF (0-1); Eosinophils 6 % (0-10); Lymphocytes 34 % (21-51); Macrocytosis SLIGHT = 6-15 cells HPF (0-5); Metamyelocyte 1 % (0-0); Monocytes 6 % (0-10); Neutrophil 45 % (42-75); Platelet Adequacy Comment Platelets Normal; Polychromasia MODERATE = 3-4 cells HPF (0-2)
[2024-02-06] MEDS: Pancrelipase DR 12,000 1 CAP FS PRN (16:05)
[2024-02-07 06:38] LABS: #Basophils 0.04 10x3/uL (0.0-0.2); %Basophils 0.2 % (0.0-1.0); %Eosinophils 1.1 % (0.0-10.0); %Lymphocytes 19.8 % (21.0-51.0); %Monocytes 5.1 % (0.0-10.0); %Neutrophils 73.1 % (42.0-75.0); Hematocrit 28.2 % (42.0-52.0); Hemoglobin 8.1 g/dL (14.0-18.0); Mean Corpuscular HGB CONC 28.7 g/dL (32.0-36.0); Mean Corpuscular Hemoglobin 27.1 pg (27.0-31.0); Mean Corpuscular Volume 94.3 fL (78.0-98.0); Mean Platelet Volume 9.2 fL (7.4-10.4); Platelet Count 151 10x3/uL (130-400); RBC Distribution Width 18.1 % (11.5-14.5); Red Blood Cell (RBC) Count 2.99 mill/uL (4.70-6.10)
[2024-02-07] MEDS: Lansoprazole 30 MG/10 ML UDCUP PER TUBE SCH (10:00)
[2024-02-07 10:21] LABS: Anion Gap 8 mmol/L (10-20); BUN (Urea Nitrogen) 44 mg/dL (8.4-25.7); Calc. Creatinine Clearance 81 mL/min (70-130); Calcium 10.4 mg/dL (7.8-10.44); Carbon Dioxide 42 mmol/L (22-29); Chloride 99 mmol/L (98-107); Estimated GFR 89; Glucose 123 mg/dL (70-105); Potassium 3.3 mmol/L (3.5-5.1); Sodium 146 mmol/L (136-145)
[2024-02-07] MEDS: Potassium Bicarbonate/Cit Ac 20 MEQ TAB PO SCH (13:35)
[2024-02-07] MEDS: Potassium Chloride 20 MEQ TAB PO SCH (14:49)
[2024-02-09] MEDS: Lorazepam 2 MG/ML VIAL SLOW IVP SCH (10:45)
[2024-02-10 04:01] LABS: Anion Gap 15 mmol/L (10-20); BUN (Urea Nitrogen) 51 mg/dL (8.4-25.7); Calc. Creatinine Clearance 67 mL/min (70-130); Calcium 9.7 mg/dL (7.8-10.44); Carbon Dioxide 38 mmol/L (22-29); Chloride 96 mmol/L (98-107); Estimated GFR 71; Glucose 139 mg/dL (70-105); Potassium 3.7 mmol/L (3.5-5.1); Sodium 145 mmol/L (136-145)
[2024-02-10] MEDS: D5 1/4 NS 1,000 ML IV SCH (18:07)
[2024-02-11 03:59] LABS: Anion Gap 11 mmol/L (10-20); BUN (Urea Nitrogen) 57 mg/dL (8.4-25.7); Calc. Creatinine Clearance 75 mL/min (70-130); Calcium 9.9 mg/dL (7.8-10.44); Carbon Dioxide 39 mmol/L (22-29); Chloride 97 mmol/L (98-107); Estimated GFR 82; Glucose 161 mg/dL (70-105); Potassium 3.1 mmol/L (3.5-5.1); Sodium 144 mmol/L (136-145)
[2024-02-11] MEDS: Potassium Bicarbonate/Cit Ac 20 MEQ TAB PER TUBE SCH (08:28)
[2024-02-11] MEDS: HYDROcodone/Acetaminophen 5/325 mg Tablet PER TUBE SCH (10:14)
[2024-02-11 15:04] LABS: Potassium 3.6 mmol/L (3.5-5.1)
[2024-02-11] MEDS: Midodrine HCl 5 MG TAB PO SCH (22:14)
[2024-02-11] MEDS: Lactated Ringer's 1,000 ML IV SCH (22:15)
[2024-02-12 08:05] LABS: Anion Gap 10 mmol/L (10-20); BUN (Urea Nitrogen) 57 mg/dL (8.4-25.7); Calc. Creatinine Clearance 78 mL/min (70-130); Calcium 9.9 mg/dL (7.8-10.44); Carbon Dioxide 41 mmol/L (22-29); Chloride 96 mmol/L (98-107); Estimated GFR 85; Glucose 126 mg/dL (70-105); Potassium 3.7 mmol/L (3.5-5.1); Sodium 143 mmol/L (136-145)
[2024-02-12] MEDS: Midodrine HCl 5 MG TAB PER TUBE SCH (08:18)
[2024-02-12] MEDS: Lorazepam 2 MG/ML VIAL SLOW IVP PRN (15:35)
[2024-02-12] MEDS ORDERED: NOREPINEPHRINE 8 MG/250 ML-D5W 250 ML IVPB SCH (21:15)
[2024-02-12] MEDS: NOREPINEPHRINE 8 MG/250 ML-D5W 250 ML IVPB SCH (21:21)
[2024-02-13 00:51] LABS: #Basophils Less than 0.03 10x3/uL (0.0-0.2); %Basophils 0.1 % (0.0-1.0); %Eosinophils 5.2 % (0.0-10.0); %Monocytes 5.7 % (0.0-10.0); %Neutrophils 62.5 % (42.0-75.0); Hematocrit 25.2 % (42.0-52.0); Hemoglobin 7.5 g/dL (14.0-18.0); Mean Corpuscular HGB CONC 29.8 g/dL (32.0-36.0); Mean Corpuscular Hemoglobin 27.2 pg (27.0-31.0); Mean Corpuscular Volume 91.3 fL (78.0-98.0); Platelet Count 115 10x3/uL (130-400); RBC Distribution Width 17.1 % (11.5-14.5); Red Blood Cell (RBC) Count 2.76 mill/uL (4.70-6.10)
[2024-02-13 08:59] LABS: Base Excess 13.3 mEq/L (-2.0 to +3.0); Calcium, Ionized (venous) 1.24 mmol/L (1.16-1.32); Chloride (VBG) 92 mmol/L (98-106); Hematocrit-VBG 25 % (42.0-52.0); Hemoglobin (Hb) 8.5 g/dL (13.1-17.2); Sodium 136 mmol/L (133-146); pH (venous) 7.357 (7.32-7.43)
[2024-02-13 09:00] LABS: Actual Bicarbonate (HCO3v) 40.7 mEq/L (22-28)
[2024-02-13] MEDS: Magnesium 2 GM/50 ML(in water) 2 GM in Premix 1 BAG IVPB SCH (09:01)
[2024-02-13 09:30] LABS: Anion Gap 8 mmol/L (10-20); BUN (Urea Nitrogen) 50 mg/dL (8.4-25.7); Calc. Creatinine Clearance 92 mL/min (70-130); Calcium 9.7 mg/dL (7.8-10.44); Carbon Dioxide 42 mmol/L (22-29); Chloride 92 mmol/L (98-107); Estimated GFR 103; Glucose 140 mg/dL (70-105); Magnesium 1.8 mg/dL (1.6-2.6); Potassium 3.7 mmol/L (3.5-5.1); Sodium 138 mmol/L (136-145)
[2024-02-14 05:17] LABS: Anion Gap 11 mmol/L (10-20); BUN (Urea Nitrogen) 46 mg/dL (8.4-25.7); Calc. Creatinine Clearance 88 mL/min (70-130); Carbon Dioxide 38 mmol/L (22-29); Chloride 89 mmol/L (98-107); Estimated GFR 98; Glucose 142 mg/dL (70-105); Potassium 4.1 mmol/L (3.5-5.1); Sodium 134 mmol/L (136-145)
[2024-02-14 08:18] VITALS: TEMP 98.5
[2024-02-14] MEDS: Hydrocortisone Sod Succ/PF 100 mg/2 ml Vial IVP SCH (08:51)
[2024-02-14 10:41] VITALS: BMI 29.6
[2024-02-14] MEDS: Morphine 4 MG/ML VIAL SLOW IVP SCH (11:47)
[2024-02-14] MEDS: Lorazepam 2 MG/ML VIAL SLOW IVP PRN (11:47)
[2024-02-14 11:52] VITALS: BP 99/50
[2024-02-14] MEDS: Morphine 4 MG/ML VIAL ONE (12:14)
[2024-02-14] MEDS: Lorazepam 2 MG/ML VIAL ONE (12:14)
== END 2024-02-14 12:06 | disposition expired | DRG 870 ==
LOC: ERS 19:28 → CCU 22:34
PROVIDERS: ADMIT Student in an Organized Health Care Education/Training Program; ATTEND Internal Medicine
PROC: 0T9B70Z Drainage of Bladder with Drainage Device, Via Natural or Artificial Opening (ICD-10-PCS; principal; 2023-12-16)
PROC: 5A1955Z Respiratory Ventilation, Greater than 96 Consecutive Hours (ICD-10-PCS; 2023-12-16)
PROC: 30233N1 Transfusion of Nonautologous Red Blood Cells into Peripheral Vein, Percutaneous Approach (ICD-10-PCS; 2023-12-16)
PROC: 4A133R1 Monitoring of Arterial Saturation, Peripheral, Percutaneous Approach (ICD-10-PCS; 2023-12-16)
PROC: 3E033XZ Introduction of Vasopressor into Peripheral Vein, Percutaneous Approach (ICD-10-PCS; 2023-12-16)
PROC: 3E03329 Introduction of Other Anti-infective into Peripheral Vein, Percutaneous Approach (ICD-10-PCS; 2023-12-16)
PROC: 30233R1 Transfusion of Nonautologous Platelets into Peripheral Vein, Percutaneous Approach (ICD-10-PCS; 2023-12-18)
PROC: 6A551Z2 Pheresis of Platelets, Multiple (ICD-10-PCS; 2023-12-18)
PROC: 4A00X4Z Measurement of Central Nervous Electrical Activity, External Approach (ICD-10-PCS; 2024-01-31)
DX: A41.51 Sepsis due to Escherichia coli [E. coli] (principal); J96.21 Acute and chronic respiratory failure with hypoxia; R65.21 Severe sepsis with septic shock; J96.22 Acute and chronic respiratory failure with hypercapnia; G93.41 Metabolic encephalopathy; J69.0 Pneumonitis due to inhalation of food and vomit; T83.511A Infection and inflammatory reaction due to indwelling urethral catheter, initial encounter; C96.6 Unifocal Langerhans-cell histiocytosis; M96.A3 Multiple fractures of ribs associated with chest compression and cardiopulmonary resuscitation; E44.0 Moderate protein-calorie malnutrition; D61.818 Other pancytopenia; D62 Acute posthemorrhagic anemia; E23.2 Diabetes insipidus; J84.9 Interstitial pulmonary disease, unspecified; K92.2 Gastrointestinal hemorrhage, unspecified; E22.2 Syndrome of inappropriate secretion of antidiuretic hormone; Z16.12 Extended spectrum beta lactamase (ESBL) resistance; N39.0 Urinary tract infection, site not specified; I46.9 Cardiac arrest, cause unspecified; G40.909 Epilepsy, unspecified, not intractable, without status epilepticus; E11.9 Type 2 diabetes mellitus without complications; Z79.899 Other long term (current) drug therapy; Z79.4 Long term (current) use of insulin; Z87.891 Personal history of nicotine dependence; I10 Essential (primary) hypertension; E78.5 Hyperlipidemia, unspecified; Z66 Do not resuscitate; R57.0 Cardiogenic shock; Z90.49 Acquired absence of other specified parts of digestive tract; Z98.890 Other specified postprocedural states; Z96.659 Presence of unspecified artificial knee joint; F41.9 Anxiety disorder, unspecified; I27.20 Pulmonary hypertension, unspecified; I48.0 Paroxysmal atrial fibrillation; J84.10 Pulmonary fibrosis, unspecified; Z93.3 Colostomy status; Z51.5 Encounter for palliative care; E66.9 Obesity, unspecified; Z68.29 Body mass index [BMI] 29.0-29.9, adult; R53.81 Other malaise; Z91.148 Patient's other noncompliance with medication regimen for other reason
CPT/HCPCS: 36415; 36416; 36430; 36556; 36600; 51702; 70450; 71045; 71275; 74176; 80048; 80053; 80162; 80202; 81001; 82550; 82805; 83036; 83605; 83690; 83735; 83880; 84145; 84146; 84443; 85025; 85049; 85300; 85362; 85384; 85610; 85730; 86141; 86850; 86900; 86901; 87040; 87077; 87086; 87186; 92950; 93005; 93306; 94002; 94003; 94640; 95700; 95711; 95819; 96365; 96375; 97139; 99292; C9113; J0171; J0282; J0692; J1160; J1650; J1720; J1815; J1940; J1953; J2060; J2185; J2270; J2272; J2405; J2597; J3010; J3370; J3370-JW; J3475; J3480; J3490; J7042; J7050; J7070; J7120; J7620; J7626; J7999; P9016; P9035; P9047; Q9967